=== PATIENT | female | born 1945 | race Caucasian/White ===

== ENCOUNTER → 2017-02-15 | Outpatient (CLI) | payer BC ==
[~2017-02-15] MED LIST: ALBU1AER9 INH; ALLEGRA D PO; ASMIN/60 INH; BIMA0.03 OPB; CALCIUM 200 MG PO; CHOL100027 PO; COEN100C15 PO; CONJ0.3T3 PO; FISHOIL PO; GLUC500C60 PO; LACT12CR18 TOP; NIAC500T8 PO; TEMA15CA4 PO; TRETINOIN 0.025% TOP; ZOLP10TA PO; biotin PO; strontium PO
--- NOTE | 2017-02-15 15:21 | MAMMOGRAPHY REPORT ---
BILATERAL DIGITAL SCREENING MAMMOGRAM WITH CAD: 02/15/2017 CLINICAL HISTORY: Routine screening. Patient has no complaints. TECHNIQUE: Current study was also evaluated with a Computer Aided Detection (CAD) system. Bilateral CC and MLO views were obtained. COMPARISON: Comparison is made to exams dated: 02/15/2016 mammogram, 02/12/2015 mammogram, 02/03/2014 ma mmogram, 01/30/2013 mammogram, 01/23/2012 mammogram, and 01/18/2011 mammogram - [facility] nter. BREAST COMPOSITION: There are scattered areas of fibroglandular density in both breasts. FINDINGS: No suspicious masses, calcifications, or areas of architectural distortion are noted in ei ther breast. There has been no significant interval change compared to prior exams. IMPRESSION: ACR BI-RADS CATEGORY 1: NEGATIVE There is no mammographic evidence of malignancy. A 1 year screening mammogram is recommended. The pa tient will receive written notification of the results. Approximately 10% of breast cancers are not detected with mammography. A negative mammographic report should not delay biopsy if a clinically suggestive mass is present. Estefanía Comer M.D. ah/:02/15/2017 12:07:03 copy to: Eryn Mi M.D. Steam Gigger: Ingrid NOLASCOR M, [facility] letter sent: Normal 1/2 BI-RADS Code: ACR BI-RADS Category 1: Negative
== END | disposition home or self-care (01) ==
LOC: C.MAMM 10:52
PROVIDERS: ATTEND Family Medicine
DX: Z12.31 Encounter for screening mammogram for malignant neoplasm of breast (principal)

== ENCOUNTER → 2017-02-21 | Outpatient (CLI) | payer BC | LOC: C.PAPS 13:38 | PROVIDERS: ATTEND Obstetrics & Gynecology | DX: Z01.419 Encounter for gynecological examination (general) (routine) without abnormal findings (principal) ==

== ENCOUNTER 2017-05-28 16:57 | Emergency (ER) | payer BC ==
[2017-05-28] MEDS ORDERED: ONDANSETRON INJ 2 MG/ML 2 ML VIAL IV STA (17:12)
[2017-05-28] MEDS ORDERED: FENTANYL CITRATE INJ 50 MCG/1 ML 2 ML VIAL ONE (17:16)
[2017-05-28] MEDS ORDERED: ONDANSETRON INJ 2 MG/ML 2 ML VIAL ONE (17:16)
[2017-05-28] MEDS: FENTANYL CITRATE INJ 50 MCG/1 ML 2 ML VIAL IV PRN ×2 (17:20→18:57)
[2017-05-28] MEDS ORDERED: OPTIRAY 320 IV PRN (17:30)
[2017-05-28 17:38] VITALS: O2SAT 95
[2017-05-28 18:03] LABS: ISTAT CREATININE 1.1 mg/dl (0.6-1.3); ISTAT HEMOGLOBIN 14.3 g/dl (12.0-16.0); ISTAT IONIZED CALCIUM 1.18 mmol/l (1.12-1.32)
--- NOTE | 2017-05-28 18:03 | DIAGNOSTIC IMAGING REPORT ---
CHEST ONE VIEW PORTABLE CLINICAL HISTORY: Atypical chest pain COMPARISON STUDY: 08/06/2012 FINDINGS: The heart is normal in size. There is aortic tortuosity. There is no failure. There is no focal pulmonary consolidation. There is a linear opacity at left lung base, likely atelectatic.[ IMPRESSION: No active disease in the chest. Electronically signed by: Christian Bower M.D. 05/28/2017 6:02 PM Dictated Date/Time: 05/28/2017 6:01 PM
[2017-05-28 18:12] LABS: ALT/SGPT 29 U/L (12-78); BLOOD UREA NITROGEN 23 mg/dl (7-18); BUN/CREATININE RATIO 18.7 (10-20); CALCIUM 9.7 mg/dl (8.5-10.1); CARBON DIOXIDE 24 mmol/L (21-32); CHLORIDE 100 mmol/L (98-107); CREATININE 1.23 mg/dl (0.60-1.20); GLUCOSE 104 mg/dl (70-99); POTASSIUM 2.9 mmol/L (3.5-5.1); SODIUM 137 mmol/L (136-145)
[2017-05-28 18:17] LABS: ALKALINE PHOSPHATASE 59 U/L (45-117); AST/SGOT 22 U/L (15-37); CKMB/CK RATIO 0.8 (0-3.0)
--- NOTE | 2017-05-28 18:44 | DIAGNOSTIC IMAGING REPORT ---
CT SCAN OF THE BRAIN WITHOUT IV CONTRAST CLINICAL HISTORY: Change in mental status. COMPARISON STUDY: No priors. TECHNIQUE: Unenhanced axial CT scan of the brain is performed from the vertex to the skull base. CT DOSE: 638.56 mGycm FINDINGS: Brain parenchyma: There are age-related involutional changes noting minimal subcortical and periventricular microangiopathic change. There is no hemorrhage, mass effect, or evidence of acute territorial ischemia by CT criteria. Jacinto-white matter is preserved. No extra-axial fluid collection is seen. Ventricles, sulci, cisterns: Prominent secondary to involutional change. Intracranial vasculature: There is mild atherosclerotic calcification of the cavernous carotid arteries. Calvarium: Unremarkable. Sinuses and mastoids: The visualized paranasal sinuses are clear. The mastoid air cells are well pneumatized. Orbits: The bony orbits are grossly intact. IMPRESSION: There is no hemorrhage, mass effect, or evidence of acute territorial ischemia by CT criteria. Electronically signed by: Manohar Preciado M.D. 05/28/2017 6:40 PM Dictated Date/Time: 05/28/2017 6:38 PM
[2017-05-28 18:46] LABS: BASO % 0.3 %; BASO ABS # 0.03 K/uL (0-0.2); COMPLETE YES; EOS % 2.8 %; HEMATOCRIT 41.8 % (37-47); IG% 0.2 %; LYMPH % 35.9 %; MEAN CELL VOLUME 88.4 fL (80-100); MEAN CORPUSCULAR HEMOGLOBIN 29.6 pg (25-34); MEAN CORPUSCULAR HGB CONC 33.5 g/dl (32-36); MEAN PLATELET VOLUME 10.5 fL (7.4-10.4); MONO % 7.9 %; NEUT % 52.9 %; PLATELET COUNT 239 K/uL (130-400); RED BLOOD COUNT 4.73 M/uL (4.2-5.4); WHITE BLOOD COUNT 10.32 K/uL (4.8-10.8)
[2017-05-28] MEDS ORDERED: FLUT0.15 NAE (18:50)
[2017-05-28] MEDS ORDERED: ZOLP10TA PO (18:50)
[2017-05-28] MEDS ORDERED: ATOR10TA88 PO (18:50)
[2017-05-28] MEDS ORDERED: CETITAB27 PO (18:50)
[2017-05-28] MEDS ORDERED: STROCRY11 PO (18:50)
[2017-05-28] MEDS ORDERED: CYCL10TA6 PO (18:50)
[2017-05-28] MEDS ORDERED: CONJ0.3T3 PO (18:50)
[2017-05-28] MEDS ORDERED: ASMIN/60 INH (18:50)
[2017-05-28] MEDS ORDERED: CALCCAP15 PO ×2 (18:50)
[2017-05-28] MEDS ORDERED: VNTHFA/IN INH (18:50)
[2017-05-28] MEDS ORDERED: TEMA15CA4 PO (18:50)
[2017-05-28] MEDS ORDERED: LABETALOL HCL IV 5 MG/ML 20ML IV STA ×2 (18:54→19:58)
--- NOTE | 2017-05-28 19:03 | DIAGNOSTIC IMAGING REPORT ---
CT ANGIOGRAM OF THE CHEST COMBO CLINICAL HISTORY: Atypical chest pain. COMPARISON STUDY: Chest x-ray dated 05/28/2017. TECHNIQUE: Before and following the IV administration of 93 cc of Optiray 320, CT angiogram of the chest was performed from the thoracic inlet to the upper abdomen utilizing the dissection protocol. Images are reviewed in the axial, sagittal, and coronal planes. 3-D MIPS images are created and assessed. IV contrast was administered without complication. A dose lowering technique was utilized adhering to the principles of ALARA. The examination is degraded by streak artifact from the patient's arms which could not be elevated above the chest. CT DOSE: 492.35 mGycm FINDINGS: Thyroid: Imaged portions of the thyroid gland are normal in size and attenuation. Thoracic aorta: There is atherosclerotic calcification of the thoracic aorta. There is a large intracranial hematoma identified. This extends from the aortic root into the descending thoracic aorta. This measures up to 7 mm in thickness as seen on image #117 of the unenhanced series. There is an is mild dilatation of the ascending thoracic aorta which measures up to 4.5 cm in diameter. The aortic arch is mildly ectatic measuring up to 3.3 cm. The descending thoracic aorta is normal in caliber, measuring up to 2.6 cm in diameter. The arch demonstrates standard 3-vessel anatomy. No dissection flat is seen. The arch vessels are widely patent. Intracranial hematoma extends into the right common artery and there is mild stranding seen around the vessel. Heart: The heart is enlarged and without pericardial effusion. Coronary arteries are densely calcified. The pulmonary trunk is normal in caliber. The pulmonary vessels are not well opacified. Lungs and pleural spaces: There is no airspace consolidation or pleural effusion. Dependent atelectasis is noted. The trachea and central airways appear clear. Mediastinum: There is no mediastinal lymphadenopathy. Loretta: Clear. Axillae: There is no axillary lymphadenopathy. Upper abdomen: There is a small hiatal hernia. Partially visualized upper abdominal viscera is otherwise normal as imaged. Skeletal structures: The skeletal structures are osteopenic. Mild degenerative change and scoliosis are seen in the thoracic spine. No lytic or blastic bony lesions are seen. IMPRESSION: 1. There is a large intramural hematoma identified as detailed above which involves the majority of the thoracic aorta. 2. There is aneurysmal dilatation of the ascending thoracic aorta which measures up to 4.5 cm in diameter. 3. Intramural hematoma extends into the right innominate artery. Mild stranding seen around the innominate artery. This is nonspecific and may represent trace hemorrhage. 4. No dissection flap is identified. 5. No airspace consolidation or pleural effusion is seen. 6. Cardiomegaly. No pericardial effusion is identified. 7. Additional findings as above. Findings were discussed with Dr. Tamez in the emergency department at the time of interpretation. Electronically signed by: Manohar Preciado M.D. 05/28/2017 7:01 PM Dictated Date/Time: 05/28/2017 6:49 PM
[2017-05-28] MEDS ORDERED: NiCARDipine IV 25 MG in SODIUM CHLORIDE 0.9% 250ML 240 ML IV STA (19:16)
[2017-05-28] MEDS ORDERED: POTASSIUM CHLORIDE 10 MEQ / 100ML WTR IV STA (20:15)
[2017-05-28] MEDS ORDERED: POTASSIUM CHLORIDE 10 MEQ / 100ML WTR IV ONE (20:15)
[2017-05-28 20:27] VITALS: BP 122/79; PULSE 71; TEMP 36.6; O2SAT 97
--- NOTE | 2017-05-28 22:45 | EMERGENCY ROOM VISIT NOTE ---
History Report prepared by Michael: Braulio Gonzáles Under the Supervision of: Dr. Hernan Tamez M.D. First contact with patient: 17:11 Chief Complaint: CHEST PAIN Stated Complaint: CHEST PAIN History of Present Illness The patient is a 71 year old female who presents to the Emergency Room with complaints of chest pain that began 1 hour ago. This history is limited secondary to the patient's altered mental status. Per the patient's , this has never happened to the patient before. Earlier today, they walked over 10,000 steps and the patient was at her baseline. This afternoon, she walked the dog and she began to have chest pain. She called her immediately telling him what was happening and that she was also having palpitations, dizziness, and shortness of breath. The called the ambulance. She then became mental altered shortly after and began rubbing her sternum. She does not have any personal cardiac history of a family history of cardiac disease. The notes that she got back from [place] last night. While she was in [facility] , she did not have an issues either. She was given Nitroglycerin and Aspirin en route via EMS. She did not have any recent falls. Source of History: spouse/significant other History Limited By: AMS Onset: 1 hour ago Position: chest Symptom Intensity: moderate Quality: sharp Timing: constant Associated Symptoms: + SOB Note: She was experiencing dizziness and palpitations prior to becoming mental altered. Review of Systems ROS is limited secondary to the patient's altered mental status. Family History Omitted secondary to the patient's age. Social History Drug Use: none Marital Status: Housing Status: lives with family Occupation Status: employed Current/Historical Medications Scheduled Albuterol Hfa (Ventolin Hfa), 1 PUFF INH BID Atorvastatin (Lipitor), 10 MG PO DAILY Calcium Carbonate-Cholecalcife (Calcium Plus Vitamin D3), 1 CAP PO QAM Calcium Carbonate-Cholecalcife (Calcium Plus Vitamin D3), 2 CAP PO HS Cetirizine/Pseudoephedrine (Zyrtec-D Er 5MG/120MG), 1 TAB PO BID Estrog Conj/Medryoxyprog Acet (Prempro 0.3MG/1.5MG), 1 TAB PO DAILY Fluticasone Propionate (Nasal) (Flonase Allergy Relief), 2 SPRAYS TYRONE DAILY Mometasone Furoate (Asmanex Twisthaler 60 Met), 1 PUFF INH BID Strontium Chloride (Bulk) (Strontium Chloride), 600 MG PO MIDDAY Zolpidem Tartrate (Ambien), 10 MG PO HS Scheduled PRN Cyclobenzaprine Hcl (Flexeril), 1 TAB PO HS PRN for MUSCLE PAINS Temazepam (Restoril), 15 MG PO HS PRN for Sleep Allergies Coded Allergies: Naproxen (Verified Allergy, Unknown, unk, 08/06/12) Rofecoxib (Verified Allergy, Unknown, unk, 02/14/16) Sulfa Antibiotics (Verified Allergy, Unknown, unknown, 08/06/12) Physical Exam Vital Signs Date Time Temp Pulse Resp B/P (MAP) Pulse Ox O2 Delivery O2 Flow Rate FiO2 05/28/17 20:27 36.6 71 20 122/79 97 05/28/17 20:27 36.6 71 20 122/79 97 05/28/17 19:18 68 20 149/77 95 Room Air 2.0 95 05/28/17 18:43 62 20 146/90 95 Room Air 05/28/17 18:01 57 20 146/97 97 Room Air 05/28/17 17:38 95 Room Air 2.0 05/28/17 17:38 95 Nasal Cannula 2.0 05/28/17 17:28 95 Room Air 05/28/17 17:28 36.5 73 26 162/86 Room Air 95 05/28/17 17:27 65 20 106/78 97 Nasal Cannula Physical Exam GENERAL: Awake, alert, very uncomfortable, in severe distress HENT: Normocephalic, atraumatic. Oropharynx unremarkable. EYES: Normal conjunctiva. Sclera non-icteric. NECK: Supple. No nuchal rigidity. FROM. No JVD. RESPIRATORY: Clear to auscultation. CARDIAC: Regular rate, normal rhythm. Extremities warm and well perfused. Pulses equal. ABDOMEN: Soft, non-distended. No tenderness to palpation. No rebound or guarding. No masses. RECTAL: Deferred. MUSCULOSKELETAL: Chest examination reveals no tenderness. The back is symmetrical on inspection without obvious abnormality. There is no CVA tenderness to palpation. No joint edema. LOWER EXTREMITIES: Calves are equal size bilaterally and non-tender. No edema. No discoloration. NEURO: Altered sensorium. No focal sensory or motor deficits noted. Expressive aphasia present. SKIN: No rash or jaundice noted. Medical Decision & Procedures ER Provider Diagnostic Interpretation: Radiology results as stated below per my review and radiologist interpretation: CHEST ONE VIEW PORTABLE CLINICAL HISTORY: Atypical chest pain COMPARISON STUDY: 08/06/2012 FINDINGS: The heart is normal in size. There is aortic tortuosity. There is no failure. There is no focal pulmonary consolidation. There is a linear opacity at left lung base, likely atelectatic.[ IMPRESSION: No active disease in the chest. Electronically signed by: Christian Bower M.D. 05/28/2017 6:02 PM Dictated Date/Time: 05/28/2017 6:[address] SCAN OF THE BRAIN WITHOUT IV CONTRAST CLINICAL HISTORY: Change in mental status. COMPARISON STUDY: No priors. TECHNIQUE: Unenhanced axial CT scan of the brain is performed from the vertex to the skull base. CT DOSE: 638.56 mGycm FINDINGS: Brain parenchyma: There are age-related involutional changes noting minimal subcortical and periventricular microangiopathic change. There is no hemorrhage, mass effect, or evidence of acute territorial ischemia by CT criteria. Jacinto-white matter is preserved. No extra-axial fluid collection is seen. Ventricles, sulci, cisterns: Prominent secondary to involutional change. Intracranial vasculature: There is mild atherosclerotic calcification of the cavernous carotid arteries. Calvarium: Unremarkable. Sinuses and mastoids: The visualized paranasal sinuses are clear. The mastoid air cells are well pneumatized. Orbits: The bony orbits are grossly intact. IMPRESSION: There is no hemorrhage, mass effect, or evidence of acute territorial ischemia by CT criteria. Electronically signed by: Manohar Preciado M.D. 05/28/2017 6:40 PM Dictated Date/Time: 05/28/2017 6:[address] ANGIOGRAM OF THE CHEST COMBO CLINICAL HISTORY: Atypical chest pain. COMPARISON STUDY: Chest x-ray dated 05/28/2017. TECHNIQUE: Before and following the IV administration of 93 cc of Optiray 320, CT angiogram of the chest was performed from the thoracic inlet to the upper abdomen utilizing the dissection protocol. Images are reviewed in the axial, sagittal, and coronal planes. 3-D MIPS images are created and assessed. IV contrast was administered without complication. A dose lowering technique was utilized adhering to the principles of ALARA. The examination is degraded by streak artifact from the patient's arms which could not be elevated above the chest. CT DOSE: 492.35 mGycm FINDINGS: Thyroid: Imaged portions of the thyroid gland are normal in size and attenuation. Thoracic aorta: There is atherosclerotic calcification of the thoracic aorta. There is a large intracranial hematoma identified. This extends from the aortic root into the descending thoracic aorta. This measures up to 7 mm in thickness as seen on image #117 of the unenhanced series. There is an is mild dilatation of the ascending thoracic aorta which measures up to 4.5 cm in diameter. The aortic arch is mildly ectatic measuring up to 3.3 cm. The descending thoracic aorta is normal in caliber, measuring up to 2.6 cm in diameter. The arch demonstrates standard 3-vessel anatomy. No dissection flat is seen. The arch vessels are widely patent. Intracranial hematoma extends into the right common artery and there is mild stranding seen around the vessel. Heart: The heart is enlarged and without pericardial effusion. Coronary arteries are densely calcified. The pulmonary trunk is normal in caliber. The pulmonary vessels are not well opacified. Lungs and pleural spaces: There is no airspace consolidation or pleural effusion. Dependent atelectasis is noted. The trachea and central airways appear clear. Mediastinum: There is no mediastinal lymphadenopathy. Loretta: Clear. Axillae: There is no axillary lymphadenopathy. Upper abdomen: There is a small hiatal hernia. Partially visualized upper abdominal viscera is otherwise normal as imaged. Skeletal structures: The skeletal structures are osteopenic. Mild degenerative change and scoliosis are seen in the thoracic spine. No lytic or blastic bony lesions are seen. IMPRESSION: 1. There is a large intramural hematoma identified as detailed above which involves the majority of the thoracic aorta. 2. There is aneurysmal dilatation of the ascending thoracic aorta which measures up to 4.5 cm in diameter. 3. Intramural hematoma extends into the right innominate artery. Mild stranding seen around the innominate artery. This is nonspecific and may represent trace hemorrhage. 4. No dissection flap is identified. 5. No airspace consolidation or pleural effusion is seen. 6. Cardiomegaly. No pericardial effusion is identified. 7. Additional findings as above. Findings were discussed with Dr. Tamez in the emergency department at the time of interpretation. Electronically signed by: Manohar Preciado M.D. 05/28/2017 7:01 PM Dictated Date/Time: 05/28/2017 6:49 PM Laboratory Results 05/28/17 17:25 Red Blood Count 4.73, Mean Corpuscular Volume 88.4, Mean Corpuscular Hemoglobin 29.6, Mean Corpuscular Hemoglobin Concent 33.5, Mean Platelet Volume 10.5, Neutrophils (%) (Auto) 52.9, Lymphocytes (%) (Auto) 35.9, Monocytes (%) (Auto) 7.9, Eosinophils (%) (Auto) 2.8, Basophils (%) (Auto) 0.3, Neutrophils # (Auto) 5.46, Lymphocytes # (Auto) 3.70, Monocytes # (Auto) 0.82, Eosinophils # (Auto) 0.29, Basophils # (Auto) 0.03 05/28/17 17:25 Test 05/28/17 17:25 05/28/17 17:42 White Blood Count 10.32 K/uL (4.8-10.8) Red Blood Count 4.73 M/uL (4.2-5.4) Hemoglobin 14.0 g/dL (12.0-16.0) Hematocrit 41.8 % (37-47) Mean Corpuscular Volume 88.4 fL (80-100) Mean Corpuscular Hemoglobin 29.6 pg (25-34) Mean Corpuscular Hemoglobin Concent 33.5 g/dl (32-36) Platelet Count 239 K/uL (130-400) Mean Platelet Volume 10.5 fL (7.4-10.4) Neutrophils (%) (Auto) 52.9 % Lymphocytes (%) (Auto) 35.9 % Monocytes (%) (Auto) 7.9 % Eosinophils (%) (Auto) 2.8 % Basophils (%) (Auto) 0.3 % Neutrophils # (Auto) 5.46 K/uL (1.4-6.5) Lymphocytes # (Auto) 3.70 K/uL (1.2-3.4) Monocytes # (Auto) 0.82 K/uL (0.11-0.59) Eosinophils # (Auto) 0.29 K/uL (0-0.5) Basophils # (Auto) 0.03 K/uL (0-0.2) RDW Standard Deviation 42.1 fL (36.4-46.3) RDW Coefficient of Variation 13.0 % (11.5-14.5) Immature Granulocyte % (Auto) 0.2 % Immature Granulocyte # (Auto) 0.02 K/uL (0.00-0.02) Estimated GFR () 51.1 Estimated GFR (Non- 44.1 BUN/Creatinine Ratio 18.7 (10-20) Calcium Level 9.7 mg/dl (8.5-10.1) Total Bilirubin 0.4 mg/dl (0.2-1) Direct Bilirubin < 0.1 mg/dl (0-0.2) Aspartate Amino Transf (AST/SGOT) 22 U/L (15-37) Alanine Aminotransferase (ALT/SGPT) 29 U/L (12-78) Alkaline Phosphatase 59 U/L (45-117) Total Creatine Kinase 226 U/L (26-192) Creatine Kinase MB 1.7 ng/ml (0.5-3.6) Creatine Kinase MB Ratio 0.8 (0-3.0) Troponin I < 0.015 ng/ml (0-0.045) Total Protein 7.6 gm/dl (6.4-8.2) Albumin 3.8 gm/dl (3.4-5.0) Lipase 225 U/L (73-393) Bedside Hemoglobin 14.3 g/dl (12.0-16.0) Bedside Hematocrit 42 % (37-47) Bedside Sodium 138 mEq/L (135-144) Bedside Potassium 3.0 mEq/L (3.3-5.0) Bedside Chloride 100 mEq/L (101-112) Bedside Total CO2 23 mEq/l (24-31) Anion Gap 18.0 mmol/L (16-25) Bedside Blood Urea Nitrogen 24 mg/dl (7-18) Bedside Creatinine 1.1 mg/dl (0.6-1.3) Bedside Glucose (other) 105 mg/dl (70-99) Bedside Ionized Calcium (Floyd) 1.18 mmol/l (1.12-1.32) Laboratory results reviewed by me Medications Administered Medications (Trade) Dose Ordered Sig/Jesús Route Start Time Stop Time Status Last Admin Dose Admin Ondansetron HCl (Zofran Inj) 4 mg NOW STAT IV 05/28/17 17:12 05/28/17 17:15 DC 05/28/17 17:19 4 MG Fentanyl Citrate (Fentanyl Inj) 50 mcg Q15M PRN IV 05/28/17 17:15 05/28/17 20:43 DC 05/28/17 18:57 50 MCG Labetalol HCl (Normodyne IV) 10 mg NOW STAT IV 05/28/17 18:54 05/28/17 18:56 DC 05/28/17 19:02 10 MG Nicardipine HCl 25 mg/Sodium Chloride 250 ml @ 0 mls/hr Q0M STAT IV 05/28/17 19:16 05/28/17 19:17 DC 05/28/17 19:33 50 MLS/HR Labetalol HCl (Normodyne IV) 10 mg NOW STAT IV 05/28/17 19:58 05/28/17 19:59 DC 05/28/17 20:05 10 MG ECG Indication: chest pain Rate (beats per minute): 68 Rhythm: sinus rhythm Findings: nonspecific-ST abn, PVC, no acute ischemic change, left axis deviation ED Course 171: The patient was evaluated in room A3. A complete history and physical exam was performed. 171: Ordered Zofran Inj 4 mg IV 1715: Ordered Fentanyl Inj 50 mcg IV 175: At this time, the patient is more lucid and making more verbal sense. She is going to radiology. 1853: Ordered Labetalol HCl 10 mg IV 1902: I discussed the patient's case with Dr. Fernandes of Cardiology at this time. He recommended transfer for further evaluation. 1915: Ordered Nicardipine HCl 25 mg/Sodium Chloride 250 ml @ 0 mls/hr Protocol IV 1922: I spoke with Dr. Hinson of Thoracic surgery. She accepted the patient for further evaluation in the ICU of [facility]. She will be analyzing the patient's radiology reports to decide if she needs to go to the OR. 1938: I discussed the patient's case with Dr. Mckeon of ICU at this time. They are aware of the patient's case. 1944: The patient will be transferred to [place] for further management by ambulance. 1957: Ordered Labetalol HCl 10 mg IV 1999: The patient is going well at this time. Medical Decision Triage Nursing notes reviewed. The patient's presentation and history were concerning for chest pain and altered mental status. Etiologies such as cardiac ischemia, aortic dissection, pulmonary embolism, pneumonia, pneumothorax, musculoskeletal, infections, gastrointestinal, as well as others were entertained. The patient was emergently evaluated. I was called to the bedside as she was in quite a bit of distress. The patient was altered. She was not answering questions. I obtained most of the history initially from her . The patient had no clinical change with nitroglycerin. She had an i-STAT and clinical testing drawn. Her ECG did not show any evidence of ischemia. Monitoring showed occasional PVCs. The patient was given a dose of IV fentanyl and Zofran. This helped relax her. She seemed to be somewhat more lucid after this. The patient had an unremarkable troponin. I-STAT shows a mild hypokalemia. Cranium is unremarkable. The patient had a very elevated d- dimer. The patient received a chest x-ray and this was unremarkable. Mediastinum appeared unremarkable. She was sent for CT imaging of the head and a dissection study. The CT of her head was unremarkable. Upon returning from radiology the patient's mental status was improved. She was having more pain and then was given a dose of IV fentanyl. I was contacted by radiology and we reviewed the imaging. The patient has an intramural hematoma of the aortic root , arch, and descending aorta. This is all thoracic in nature. There is some abnormality noted of the innominate artery as well. The patient was given a dose of IV labetalol as she was mildly hypertensive. This helped somewhat. Her heart rate was better controlled. Her blood pressure was still mildly elevated and nicardipine was initiated. I informed the patient and her that she would require additional care for this problem. I did consult with Dr. Fernandes of [facility] cardiology and he recommended transfer. The patient and would like to go to [facility]. Unfortunately due to weather [employer] was unavailable by air. I did ask for the flight crew by ground for critical care transport. I consulted with [facility] thoracic surgery , Dr. Hinson and Dr. Mckeon from critical care. The patient was accepted by thoracic surgery to the [facility] ICU. They agreed with the treatment so far and recommended a target blood pressure of around 120 systolic. The patient did require a second dose of IV labetalol. Her nicardipine drip was continued. The flight crew arrived and they were updated. The patient was feeling significantly better. Her mental status was normal at this point. Blood pressure was 122/79. Paperwork and imaging were compiled. The patient was transferred in critical condition for further management at [facility]. Medication Reconcilliation Current Medication List: was personally reviewed by me Blood Pressure Screening Patient's blood pressure: Elevated blood pressure Blood pressure disposition: Elevated BP felt to be situational Consults Time Called: 1899 Consulting Physician: Dr. Fernandes - Cardiology Returned Call: 1902 They recommended that the patient be transferred to a tertiary care facility. Additional Consults: Time Called: 1919 Consulted Physician: Dr. Hinson - Thoracic Surgery Returned Call: 1922 Additional Comments: She accepted the patient for further treatment at her facility. She recommended that the patient go to the ICU pending radiology review. Time Called: 1934 Consulted Physician: Dr. Mckeon - ICU/Critical Care Returned Call: 1938 Additional Comments: We discussed the patient's case. They are aware of the patient's condition. Impression Primary Impression: Intramural aortic hematoma Critical Care I have personally spent greater than 120 minutes of critical care time in the direct management of this patient. This includes bedside care, interpretation of diagnostic studies, and testing, discussion with consultants, patient, and family members, and other required patient management activities. This 120 minutes is in excess of all separately billable procedures. Scribe Attestation The scribe's documentation has been prepared under my direction and personally reviewed by me in its entirety. I confirm that the note above accurately reflects all work, treatment, procedures, and medical decision making performed by me. Departure Information Dispostion Transfer Acute Care Facility Referrals No Doctor, Assigned (PCP) Patient Instructions [facility]
[2017-05-29 09:29] LABS: POINT OF CARE TROPONIN I < 0.030 ng/ml (0-0.045)
== END 2017-05-28 20:28 | disposition short-term general hospital (02) ==
LOC: EDBD 16:57 → C.EDA 16:58
DX: I71.00 Dissection of unspecified site of aorta (principal); Z79.899 Other long term (current) drug therapy; Z88.2 Allergy status to sulfonamides; Z88.8 Allergy status to other drugs, medicaments and biological substances

== ENCOUNTER 2020-11-09 06:50 | Observation (INO) ==
--- NOTE | 2020-10-11 14:37 | PAT Medication Instructions ---
Medication Instructions Date of Service October 11, 2020 Home Medications Medication Instructions Recorded mometasone 1 puffs INH BID #3 inhaler 02/10/20 testosterone proprionate powder See Rx Instructions TRANSDERMAL 06/16/20 DAILY #30 gm antiarthritic combination no.2 900 mg tablet 1 mg PO BID ascorbate calcium (vitamin C) 500 mg tablet 500 mg PO DAILY PRN atorvastatin 80 mg tablet 80 mg PO QPM cyclobenzaprine 10 mg tablet 5 mg PO DAILY PRN hydrocortisone valerate 0.2 % topical cream 1 applic TOPICAL DAILY metoprolol tartrate 100 mg tablet 100 mg PO QPM zolpidem 5 mg tablet 0.3 mg PO QPM PRN mometasone 1 puffs INH BID testosterone proprionate powder See Rx Instructions TRANSDERMAL DAILY meloxicam 7.5 mg tablet 7.5 mg PO QAM Calcium Otc 400 mg PO BID De-(Dry Eye)Otc 5 ml PO QAM Strontium Otc 340 mg PO QPM acetylcarnitine 250 mg PO QPM albuterol sulfate 1 puff INHALATION BID aspirin [Aspir-81] 81 mg PO HS cholecalciferol (vitamin D3) 1,000 unit PO QPM chondroitin sulfate A sodium [Chondroitin Sulfate] 400 mg PO QPM conj estrog-medroxyprogest esha [Prempro] 1 tab PO QAM magnesium citrate 400 mg PO QAM multivitamin 1 tab PO QAM proline (bulk) [L-Proline] 1 ea MISCELLANEOUS QPM temazepam 15 mg PO HS PRN vitamin K2 100 mcg PO QPM Continue as directed hydrocortisone valerate 0.2 % topical cream 1 applic TOPICAL DAILY testosterone proprionate powder See Rx Instructions TRANSDERMAL DAILY STOP taking 2 weeks before surgery If surgery is within 2 weeks, stop taking as soon as possible. antiarthritic combination no.2 900 mg tablet 1 mg PO BID Calcium Otc 400 mg PO BID De-(Dry Eye)Otc 5 ml PO QAM Strontium Otc 340 mg PO QPM acetylcarnitine 250 mg PO QPM chondroitin sulfate A sodium [Chondroitin Sulfate] 400 mg PO QPM proline (bulk) [L-Proline] 1 ea MISCELLANEOUS QPM vitamin K2 100 mcg PO QPM DO NOT take the morning of surgery ascorbate calcium (vitamin C) 500 mg tablet 500 mg PO DAILY PRN cyclobenzaprine 10 mg tablet 5 mg PO DAILY PRN Calcium Otc 400 mg PO BID magnesium citrate 400 mg PO QAM multivitamin 1 tab PO QAM Take morning of surgery OTHERWISE NOTHING TO EAT OR DRINK AFTER MIDNIGHT: mometasone 1 puffs INH BID albuterol sulfate 1 puff INHALATION BID -- bring with you to the hospital AM of surgery Take evening before surgery ascorbate calcium (vitamin C) 500 mg tablet 500 mg PO DAILY PRN (if needed) atorvastatin 80 mg tablet 80 mg PO QPM cyclobenzaprine 10 mg tablet 5 mg PO DAILY PRN (if needed) metoprolol tartrate 100 mg tablet 100 mg PO QPM zolpidem 5 mg tablet 0.3 mg PO QPM PRN (if needed) mometasone 1 puffs INH BID Calcium Otc 400 mg PO BID albuterol sulfate 1 puff INHALATION BID aspirin [Aspir-81] 81 mg PO HS cholecalciferol (vitamin D3) 1,000 unit PO QPM temazepam 15 mg PO HS PRN (if needed) Other Notes If you have any questions please call us at [phone] or [phone] or [phone] or [phone]
--- NOTE | 2020-10-12 10:50 | Anesthesiology Consultation ---
Date of Service October 12, 2020 Assessment & Plan (1) Encounter for pre-operative examination: Cardiology Clearance 09/30/20: From a cardiac standpoint she is doing very well and I would like to repeat her echocardiogram in 1 year and see her in follow-up at that point. Otherwise, she is on a very good medical regimen and no changes will be made today. In terms of her preop risk assessment she and her were counseled that I would place her as a moderate risk for any adverse perioperative cardiovascular event with the risk being approximately less than 5%. She was further counseled that no further cardiac testing or intervention would further lower that risk. They both state that they understand, they are accepting that risk and wished to proceed with surgery. I see no need to delay from a cardiac standpoint. She was counseled to continue her metoprolol under operative throughout the perioperative. To further reduce her risk." COVID Status: As of 10/12 assessment, patient denies travel to endemic area, known exposure/sick contacts, or symptoms of COVID19. Patient instructed that they and their household members must follow strict social distancing guidelines, wear a mask in public and avoid travel/events/gatherings for 14 days prior to surgery. Preoperative COVID19 testing to be completed prior to surgery per surgeon's arra ngements (11/03). Patient made aware to self-isolate as much as possible between COVID testing and surgery. Chart Review Chart Review: Acceptable Risk for Surgery and Patient seen in Pre Admission Testing Teaching & Discussion Instructed NPO after midnight before surgery, except medications with 15 cc of water. Medication instructions provided according to the PAT guidelines. History Surgery Operation Date: 11/09/20 12:30 Proposed Procedures p Right Total Knee Arthroplasty - Familia Jules MD Height/Weight Height: 5 ft 9.75 in Weight: 66.9 kg Allergies Allergy/AdvReac Type Severity Reaction Status Date / Time naproxen Allergy Unknown ITCHY Verified 09/24/20 09:42 rofecoxib Allergy Unknown ITCHY Verified 09/24/20 09:42 Sulfa (Sulfonamide Allergy Unknown unknown Verified 09/24/20 09:42 Antibiotics) Naprosyn TABS Allergy Unknown ITCHY Uncoded 09/24/20 09:42 Sulfa Drugs Allergy Unknown Unknown Uncoded 09/24/20 09:42 Vioxx TABS Allergy Unknown ITCHY Uncoded 09/24/20 09:42 Medications Home Medications Medication Instructions Recorded Confirmed Last Taken antiarthritic combination no.2 900 1 mg PO BID tab 02/26/19 09/24/20 Unknown mg tablet ascorbate calcium (vitamin C) 500 500 mg PO DAILY PRN 02/26/19 09/24/20 Unknown mg tablet atorvastatin 80 mg tablet 80 mg PO QPM tab 02/26/19 09/24/20 Unknown cyclobenzaprine 10 mg tablet 5 mg PO DAILY PRN tab 02/26/19 09/24/20 Unknown hydrocortisone valerate 0.2 % 1 applic TOPICAL DAILY #3 gm 02/26/19 09/24/20 Unknown topical cream metoprolol tartrate 100 mg tablet 100 mg PO QPM tab 05/23/19 09/24/20 Unknown zolpidem 5 mg tablet 0.3 mg PO QPM PRN tab 05/23/19 09/24/20 Unknown mometasone 1 puffs INH BID #3 inhaler 02/10/20 09/24/20 Unknown testosterone proprionate powder See Rx Instructions TRANSDERMAL 06/16/20 09/24/20 Unknown DAILY #30 gm meloxicam 7.5 mg tablet 7.5 mg PO QAM 08/20/20 09/24/20 Unknown Calcium Otc 400 mg PO BID 09/24/20 09/24/20 Unknown De-(Dry Eye)Otc 5 ml PO QAM 09/24/20 09/24/20 Unknown Strontium Otc 340 mg PO QPM 09/24/20 09/24/20 Unknown acetylcarnitine 250 mg PO QPM 09/24/20 09/24/20 Unknown albuterol sulfate 1 puff INHALATION BID 09/24/20 09/24/20 Unknown aspirin [Aspir-81] 81 mg PO HS 09/24/20 09/24/20 Unknown cholecalciferol (vitamin D3) 1,000 unit PO QPM 09/24/20 09/24/20 Unknown [Vitamin D3] chondroitin sulfate A sodium 400 mg PO QPM 09/24/20 09/24/20 Unknown [Chondroitin Sulfate] conj estrog-medroxyprogest esha 1 tab PO QAM 09/24/20 09/24/20 Unknown [Prempro] magnesium citrate 400 mg PO QAM 09/24/20 09/24/20 Unknown multivitamin 1 tab PO QAM 09/24/20 09/24/20 Unknown proline (bulk) [L-Proline] 1 ea MISCELLANEOUS QPM 09/24/20 09/24/20 Unknown temazepam 15 mg PO HS PRN 09/24/20 09/24/20 Unknown vitamin K2 100 mcg PO QPM 09/24/20 09/24/20 Unknown Past Medical History Medical History (Updated 10/12/20 @ 16:20 by Ang Dawson) Asthma Bilateral primary osteoarthritis of knee Cancer BASAL CELL FACE Celiac artery stenosis H/O allergic urticaria Hyperlipidemia Hypertension Osteoarthritis Thoracic aortic aneurysm without rupture Spontaneous dissection of 4.5cm aneurysm in 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 Monitored by Dr Zurita Naz. Exercise / Class Metabolic Activity II 4-5 Yardwork/Stairs/Walk up hill (Walks about 3 miles per day without CP or SOB) Past Family History Family History Father Diabetes Other Asthma Coronary heart disease Denies family history of Ovarian cancer Breast cancer Colorectal cancer Past Surgical History Surgical History History of appendectomy History of colonoscopy MULTIPLE S/P [place] [facility] [place]illectomy Past Anesthesia History No Hx of Anesthesia Complications and No Family Hx of Anesthesia Complications History of PONV No Hx of PONV and No Hx of Motion Sickness Social History Smoking Status: Former smoker Do You Dip or Chew Tobacco: No Smoking End Date: QUIT 1974 Hx Alcohol Use: Yes Alcohol type: beer, wine and hard liquor alcohol intake frequency: 0-2 drinks per day (1/day) Hx Substance Use: No Review of Systems Pt denies any recent chest pain, shortness of breath, palpitations, cough, fever, URI, or uncontrolled acid reflux. Physical Exam Vital Signs BP: 124/82 P: 67bpm SPO2: 95% RA T: 97.9 F R: 16 ENMT Mouth: + dental restorations (few crowns); no chipped teeth and no loose teeth Thyromental Distance: > or= 3.5 Finger Breadths Mallampati Class: I Neck normal visual inspection; neck extension not limited Respiratory normal respiratory effort, lungs clear to auscultation Cardiovascular RRR, no murmur, no edema Vessels: no carotid bruit Testing Laboratory Results 10/12/20 11:14 10/12/20 11:14 PT 10.3 Seconds (9.0-12.0) 10/12/20 11:14 INR 1.0 (0.9-1.1) 10/12/20 11:14 APTT 25.4 Seconds (21.0-31.0) 10/12/20 11:14 Blood Type O Positive 10/12/20 11:14 Antibody Screen NEGATIVE 10/12/20 11:14 Electrocardiogram Date: 09/30/20 Findings: + NSR @ (82bpm) Chest X-Ray Date: 10/12/20 Findings: + NAD Echocardiogram Date: 04/28/19 EF: 63% Compared to last available study changes are noted as follows: Previously documented aortic root aneurysm is not visualized. Normal LV chamber size with mild concentric LVH. Normal LV systolic function without regional wall motion abnormality. Grade 1 diastolic dysfunction. Mild aortic valve sclerosis without stenosis. The aortic root and proximal ascending aorta are normal size. Patient is status post repair of the ascending aorta with a 28 mm Gelweave graft. Cardiac Catheterization Date: 05/30/17 The coronary arteries have diffuse minor irregularities.
[2020-10-12 11:37] LABS: Basophils # (auto) 0.03 K/uL (0-0.2); Basophils % (auto) 0.4 %; Eosinophils # (auto) 0.29 K/uL (0-0.5); Eosinophils % (auto) 3.4 %; Hematocrit (blood only) 42.8 % (37-47); Hemoglobin 14.5 g/dL (12.0-16.0); Immature Granulocytes # (auto) 0.01 K/uL (0.00-0.02); Immature Granulocytes % (auto) 0.1 %; Lymphocytes # (auto) 1.12 K/uL (1.2-3.4); Lymphocytes % (auto) 13.1 %; Mean Corpuscular Hemoglobin 30.5 pg (25-34); Mean Corpuscular Hgb Conc 33.9 g/dL (32-36); Mean Corpuscular Volume 90.1 fL (80-100); Mean Platelet Volume 10.3 fL (7.4-10.4); Monocytes # (auto) 0.93 K/uL (0.11-0.59); Monocytes % (auto) 10.9 %; Neutrophils # (auto) 6.16 K/uL (1.4-6.5); Neutrophils % (auto) 72.1 %; Platelet Count 249 K/uL (130-400); RDW Coefficient of Variation 13.2 % (11.5-14.5); RDW Standard Deviation 43.6 fL (36.4-46.3); Red Blood Count 4.75 M/uL (4.2-5.4); White Blood Count 8.54 K/uL (4.8-10.8)
[2020-10-12 11:51] LABS: Partial Thromboplastin Time 25.4 Seconds (21.0-31.0); Prothrombin Time 10.3 Seconds (9.0-12.0)
--- NOTE | 2020-10-12 11:58 | XRay Report ---
XR chest Pre-admission PA/Lat HISTORY: Preop. COMPARISON: Chest 05/28/2017. FINDINGS: There are poststernotomy changes. There is a tortuous thoracic aorta. The heart is normal i n size. No pleural effusions. No pneumothorax. The lungs are clear. IMPRESSION: No acute process. ACT 112: Negative or not required by law. Electronically signed by: Nikhil Goodrich M.D. 10/12/2020 11:56 AM
[2020-10-12 14:11] LABS: Calcium 9.3 mg/dl (8.5-10.1); Creatinine Clr Calc Pharmacy 46.7 ml/min; Est GFR (African American) 56.9; Est GFR (Non-African American) 49.1; Potassium 4.5 mmol/L (3.5-5.1)
--- NOTE | 2020-11-05 14:27 | History and Physical Report ---
DATE OF ADMISSION: 11/09/2020 CHIEF COMPLAINT: Bilateral knee pain and discomfort, right side greater than left. HISTORY OF PRESENT ILLNESS: The patient is a 75-year-old female who presents for surgical treatment of her knees. She has got a long history of bilateral knee pain and discomfort that has gradually gotten worse over the past 7 years. She has been followed by Dr. Ma at [facility]. She has been through extensive conservative care including multiple injections and oral medicines. She does take some NSAIDs, which help a little bit. It is mostly consist of Mobic. She has been through physical therapy, which helped minimally. She has had injections, which were effective initially, but became less successful over time. She had both steroid shots and viscosupplementation. She has got global pain. She has got pain all the time. The more she walks, the more it hurts. She is a fairly avid walker and has been less able to do that. She has pain going up and down steps. She would like to have her knees fixed. PAST MEDICAL HISTORY: Significant for, 1. Unspecified heart disease. 2. Elevated cholesterol. 3. Hypertension. 4. Basal cell skin cancer. 5. Dissecting aortic aneurysm treated at [facility] 3-4 years ago. ALLERGIES: SULFA, NAPROXEN, BIOTIN. CURRENT MEDICINES: Include, 1. Ambien 10 mg at nighttime. 2. Atorvastatin 40 mg a day. 3. Metoprolol XL 100 mg once a day. 4. Steroid topical cream. 5. Restoril 15 mg at bedtime. 6. Hydrocortisone topical cream. 7. Magnesium citrate. 8. Vitamin K. 9. Testosterone cream. 10. Multivitamin. 11. Baby aspirin. 12. Albuterol inhaler p.r.n. 13. Asmanex twice a day. 14. Cyclobenzaprine 10 mg a day. 15. Glucosamine. 16. Calcium chloride crystals. 17. Vitamin D3. 18. Prempro. 19. Meloxicam 7.5 mg a day. 20. Calcium. SOCIAL HISTORY: A 75-year-old female. She is . Quite active. One drink per day. Does not smoke. FAMILY HISTORY: Significant for heart disease and diabetes. REVIEW OF SYSTEMS: Significant for this dissecting aneurysm treated at [facility] 3-4 years ago. Denies any diabetes. No chest pain or shortness of breath. No history of DVT or PE. No known bleeding problems. PHYSICAL EXAMINATION: GENERAL: Shows a pleasant elderly female, looks to be in pretty good health. HEENT: Benign. NECK: Supple, no lymphadenopathy. LUNGS: Clear to auscultation. HEART: Regular rate and rhythm. ABDOMEN: Soft, nontender, nondistended. EXTREMITIES: Grossly neurovascularly intact except as follows: Examination of both knees reveals the patient walks independently. Examination of the right knee reveals valgus alignment, which is increased with weightbearing. She has got a moderate-sized joint effusion. Range of motion is a couple degrees short of full extension to 120 degrees of flexion. There is no instability. No pain with hip motion. Examination of the left knee reveals a varus deformity. She does have a varus thrust with weightbearing. Tender over the medial joint line. Small knee effusion. Range of motion 5-125. No pain with hip motion. X-RAYS: X-rays of both knees were reviewed. It shows advanced bilateral knee DJD. The right knee has a valgus deformity with complete loss of lateral joint space with osteophytes laterally and the medial side gapping. Some mild to moderate patellofemoral disease. X-rays of the left knee reveal advanced medial compartment DJD. She has got complete loss of her medial joint space. She has got wear of her medial tibial plateau. Osteophytes primarily medially. ASSESSMENT: A 75-year-old white female with a history of dissecting aortic aneurysm in the past, underlying heart disease, hypertension, elevated cholesterol, asthma, with advanced bilateral knee degenerative joint disease. She has failed conservative treatment. The right knee is bothering her more than the left and she would like to proceed with surgery on her right knee at this time. PLAN: We are going to take her to the operating room and do right total knee replacement. The risks and benefits of this procedure were explained to the patient including but not limited to DVT, PE, , infection, neurological injury, vascular injury, bleeding problem, pain, limited range of motion, stiffness, failure to relieve her symptoms, incomplete relief of symptoms, need for further surgery in the future, fracture, leg length inequality, nerve palsy, etc. The patient understands and desires to proceed. Informed consent was obtained. As far as medicines, she is going to stop her Mobic 10 days preop. She is planning to be discharged to home using [facility] health program.
[~2020-11-09 06:50] MED LIST changes: +ACETAMINOPHEN 500 MG TAB PO SCH; -ALBU1AER9 INH; -ALLEGRA D PO; -ASMIN/60 INH; -BIMA0.03 OPB; +BUPIVACAINE 0.25% 30 ML VIAL ONE; +BUPIVACAINE 0.5 % 5 MG/1 ML PF 10ML VIAL ONE; +BUPIVACAINE LIPOSOME/PF 266 MG, BUPIVACAINE/EPINEPHRINE 50 ML, SODIUM CHLORIDE 0.9% 30 ... INFIL SCH; -CALCIUM 200 MG PO; -CHOL100027 PO; -COEN100C15 PO; -CONJ0.3T3 PO; +DEXAMETHASONE SOD INJ 4 MG/ML VIAL ONE; +EPINEPHrine INJ 1 MG/ML AMP ONE; +FAMOTIDINE 20 MG TAB PO SCH; -FISHOIL PO; +GABAPENTIN 300 MG CAP PO SCH; -GLUC500C60 PO; -LACT12CR18 TOP; +LR 500ML BOLUS, THEN 15ML/HR IV SCH; +LR 60ML/HR IV SCH; -NIAC500T8 PO; -TEMA15CA4 PO; +TRANEXAMIC ACID 1,000 MG **IV Intra-op IV SCH; -TRETINOIN 0.025% TOP; -ZOLP10TA PO; -biotin PO; +ceFAZolin 2000MG 2,000 MG/15 ML SYR IV SCH; -strontium PO
[2020-11-09] MEDS ORDERED: MIDAZOLAM HCL 1 MG/ML 2ML VIAL ONE (07:50)
[2020-11-09] MEDS ORDERED: fentaNYL citrate 100 MCG/2 ML VIAL ONE (07:50)
[2020-11-09] MEDS ORDERED: ePHEDrine sulfate 50 MG/ML AMP IV PRN (08:13)
[2020-11-09] MEDS ORDERED: ATROPINE SULFATE 0.1 MG/ML 10ML SYR IV PRN (08:13)
[2020-11-09] MEDS ORDERED: ONDANSETRON INJ 2 MG/ML 2 ML VIAL IV PRN ×2 (08:13→11:40)
[2020-11-09] MEDS ORDERED: fentaNYL citrate 100 MCG/2 ML VIAL IV PRN (08:13)
[2020-11-09] MEDS ORDERED: SODIUM CHLORIDE 0.9% PF 50 ML VIAL ONE (08:23)
[2020-11-09] MEDS ORDERED: BUPIVACAINE 0.25% 30 ML VIAL ONE (08:23)
[2020-11-09] MEDS ORDERED: BACITRACIN INJ 50,000 UNIT VIAL ONE (08:23)
[2020-11-09] MEDS ORDERED: BUPIVACAINE LIPOSOME 1.3% 266 MG/20 ML VIAL ONE (08:23)
[2020-11-09] MEDS ORDERED: EPINEPHrine INJ 1 MG/ML AMP ONE (08:24)
--- NOTE | 2020-11-09 08:24 | History & Physical Bridge Note ---
Date of Service November 09, 2020 History & Physical Bridge Note I have examined the patient, reviewed the History & Physical and in the interval since the performance of the History & Physical I have noted the following changes of clinical significance: no changes noted
[2020-11-09] MEDS ORDERED: PROPOFOL IV EMULSION 10 MG/ML 20 ML VIAL IV ONE (08:50)
[2020-11-09] MEDS ORDERED: LIDOCAINE HCL 2% 2 ML VIAL/AMP(20MG/ML) INFIL ONE (08:50)
[2020-11-09] MEDS ORDERED: ONDANSETRON INJ 2 MG/ML 2 ML VIAL ONE (08:50)
--- NOTE | 2020-11-09 10:31 | Operative Report ---
Post Operative Report Pre & Post Diagnosis Operation Date: 11/09/20 08:50 Pre-Op Diagnosis: Right Knee Advanced Degenerative Joint Disease Post-Op Diagnosis: Right Knee Advanced Degenerative Joint Disease I identified the patient and participated in the time-out.: Yes Procedure Operation Date: 11/09/20 08:50 Actual Procedures p Right Total Knee Arthroplasty(Right) - Familia Jules MD Surgeon Familia Jules MD [employer]el Plant Operator FLAVIA Forde Estimated Blood Loss 50 Findings Consistent with Post-Op Diagnosis Operative findings were advanced right knee DJD. She had extensive grade 4 [id number] disease and eburnation of the lateral femoral condyle and lateral tibial plateau. She had some spotty grade 4 changes elsewhere. She had a large knee joint effusion. She had a fixed valgus deformity to her knee. Fluids 1900 cc. Specimens Right knee sent for pathology. Drains None. Anesthesia Type Spinal MAC Complications none Disposition Accompanied Patient To Recovery: No Disposition: Recovery Room Indications Patient is a 75-year-old fairly very active female who has had a long history of bilateral knee pain and discomfort treated conservatively at a local orthopedic office. She is failed conservative care. Of the right knee was by the more than left. X-ray showed advanced bilateral knee DJD. She elected proceed with right total knee arthroplasty. Description of Procedure Operative implants consisted of: 1. Biomet Vanguard size 62.5 right posterior stabilized femoral component. 2. Biomet size 71 tibial tray. 3. 10 mm posterior stabilized polyethylene insert. 4. 31 x 8 all polypatella. The patient was taken to the operating, identified, placed on the operating table supine position. All contact areas were properly padded. IV antibiotics tried by anesthesia team. Right thigh tourniquet was then placed. The right lower extremity was then prepped and draped in usual sterile fashion. The right leg was elevated exsanguinated with use of an Esmarch and tourniquet placed at 300 mmHg. An anterior approach of the right knee was then performed through longitudinal incision centered over the patella. Sharp dissection got through subcutaneous tissue down the extensor mechanism. A medial parapatellar arthrotomy incision was made. Some subperiosteal dissection was carried out medially. The fat pad was resected from each patella tendon. Lateral patellofemoral ligament was released. Patella was subluxated laterally and the knee was flexed. The osteophytes were taken off distal femur. The ACL PCL were then released from distal femur and the tibia subluxated anteriorly. The external tibial alignment jig was then placed in the interface the tibia and adjusted 12 mm medially. Proximal tibial cut was made remove about 3 to 4 mm of bone from the medial side. The tibia was then sized to a size 71. We did downsize a slightly in order to get a better rotation of the tray. Attention drawn the femur. The distal femur stem with a sharp drill. The intramedullary canal was suction. A right 5 degree valgus cutting guide was placed. The distal femoral cutting block was pinned in place. The distal femoral cut was made to take an additional 3 mm bone off distal femur. The knee was brought out in extension. I did release some the IT band and posterior lateral capsule in order to equalize extension gap. At this was done taking great care to protect the peroneal nerve. The knee was then flexed. The femur was then sized to a size 62.5. The AP cutting block was pinned parallel to the epicondylar axis which was 4 degrees of external rotation. The anterior cut, anterior chamfer, posterior cut, posterior chamfer cuts were made. Box cutting guide was placed in just slight lateral box cut was made. The knee was flexed. The remnants of the medial lateral menisci were excised. The osteophytes were taken off the posterior aspect the femur. I did release the popliteus as well to equalize the flexion gap. The trial femoral component was placed. The tibial tray was pinned in maximum external rotation and the drill and stem punch were used to create defect in proximal tibia for the tibial tray. Knee was then trialed and the 10 mm insert fit most appropriately. Attention drawn the patella. The patella was cleaned of all soft tissue. Patella thickness measured 22 mm in thickness was cut down to 14. Was sized to a size 31 patella. The lug holes were drilled for the 31 patella. The lateral osteophyte was removed. Patella button was placed. Knee was taken through range of motion patella tracked nicely with no thumbs test. Attention drawn to placing permanent components. All trial components were removed. Bone plug was placed in the distal femur limit blood loss put a double batch Palacos G cement was mixed. A Biomet [employer]guard size 62.5 right posterior stabilized femoral component, size 71 tibial tray, a 10 mm posterior stabilized polyethylene insert, and a 31 x 8 all polypatella then cemented in place. The knee was brought out into full extension total cement hardened. Final cement check was then performed. The pericapsular tissues were injected with total 100 cc of combination of 20 of Exparel, 30 cc of normal saline, 50 cc of quarter percent Marcaine with epinephrine. Patient did receive 1 g tranexamic acid per the tourniquet was then let down for final tourniquet time 56 minutes. Hemostasis assured with electrocautery. The wounds once again irrigated with extensor Closed with combination 1 PDS suture #1 Vicryl suture in [id number] fashion with extensor Maxon checked found to be intact with subcutaneous tissue then closed 2 Dexon suture in a buried knot fashion skin was closed skin óscar. Leg was then cleaned and dried a sterile dressing both Xeroform, 4 x 4's, sterile cast padding, Husam bandage were applied. Patient then transferred to the recovery room in stable condition. Patient tolerated procedure well no complications. Sarthak Forde, my physician workers compensation claims assistant, was present for the entire procedure. His assistance was essential and required for appropriate patient positioning, prepping and draping, surgical exposure, performing the technical details of the operation, placement the implants, closure of the wound, and placement of the sterile bandage. I attest to the content of the Intraoperative Record and any orders documented therein. Any exceptions are noted below.
--- NOTE | 2020-11-09 10:47 | XRay Report ---
TWO VIEWS RIGHT KNEE CLINICAL HISTORY: Postoperative examination. FINDINGS: AP and crosstable lateral portable views of the right knee are obtained. A right knee arthr oplasty is in near anatomic alignment. There has been undersurface remodeling of the patella. No acut e fracture is seen. There are expected postoperative changes around the knee including skin clips, so ft tissue edema, and subcutaneous gas. There is atherosclerotic calcification of the popliteal artery . IMPRESSION: Expected postoperative changes status post right knee arthroplasty. No acute fracture is seen. ACT 112: Negative or not required by law. Electronically signed by: Manohar Preciado M.D. 11/09/2020 10:46 AM
--- NOTE | 2020-11-09 11:28 | Anesthesiology Progress Note ---
Date of Service November 09, 2020 Anesthesia Post Procedure Vital Signs Vital Signs: Temp Pulse Resp BP BP Pulse Ox 11/09/20 11:20 36.2 C L 68 16 148/72 H 98 11/09/20 11:10 36.2 C L 68 16 154/76 H 96 11/09/20 11:00 70 16 147/75 H 99 11/09/20 10:50 73 16 165/87 H 96 11/09/20 10:40 78 16 136/67 96 11/09/20 10:30 36.2 C L 75 16 107/62 97 11/09/20 10:21 36.2 C L 16 107/62 94 11/09/20 07:21 36.9 C 71 16 145/90 H 94 Pain Intensity Right Knee: Pain Intensity: 7 Transfer of Care Handoff Completed per policy Notes Mental Status: alert / awake / arousable Patient Amnestic to Procedure: Yes Nausea / Vomiting: adequately controlled Pain: adequately controlled Airway Patency, RR, SpO2: stable & adequate BP & HR: stable & adequate Hydration State: stable & adequate Neuraxial Anesthesia: was administered and sensory block is resolving Anesthetic Complications: no major complications apparent and Pt Satisfied with anesthetic care
[2020-11-09] MEDS ORDERED: TEMAZEPAM 15 MG CAPSULE PO PRN (11:40)
[2020-11-09] MEDS ORDERED: HYDROmorphone INJ 0.5 MG/0.5 ML SYR IV PRN (11:40)
[2020-11-09] MEDS ORDERED: MAGNESIUM HYDROXIDE SUSP 30 ML UDC PO PRN (11:40)
[2020-11-09] MEDS ORDERED: METOCLOPRAMIDE HCL INJ 5 MG/ML 2 ML VIAL IV PRN (11:40)
[2020-11-09] MEDS ORDERED: traMADol HCL 50 MG TABLET PO PRN (11:40)
[2020-11-09] MEDS ORDERED: ALUMINUM/MAGNESIUM SUSP 30 ML UDC PO PRN (11:40)
[2020-11-09] MEDS ORDERED: CYCLOBENZAPRINE HCL 5 MG TAB PO PRN (11:40)
[2020-11-09] MEDS ORDERED: bisacodyL 10 MG SUPP PR PRN (11:40)
[2020-11-09] MEDS ORDERED: ZOLPIDEM TARTRATE 5 MG TAB PO PRN (11:40)
[2020-11-09] MEDS ORDERED: NALOXONE HCL 0.4 MG/1 ML VIAL/CARP IV PRN (11:40)
[2020-11-09] MEDS: KETOROLAC TROMETHAMINE 15 MG/ML VIAL IV SCH ×2 (13:41→19:11)
[2020-11-09] MEDS: PROSOURCE NO CARB 30 ML/PKT PO SCH ×2 (13:42→21:12)
[2020-11-09] MEDS: ACETAMINOPHEN 500 MG TAB PO SCH (15:50)
[2020-11-09] MEDS: ceFAZolin 1000MG 1,000 MG/7.5 ML SYR IV SCH (15:52)
[2020-11-09] MEDS ORDERED: TRANEXAMIC ACID / 0.7% NACL 1,000 MG/100 ML BAG IV SCH (17:00)
[2020-11-09] MEDS: SODIUM CHLORIDE 0.9% 1000ML 1,000 ML IV SCH (17:58)
[2020-11-09] MEDS: FERROUS GLUCONATE 324 MG TAB PO SCH (17:59)
[2020-11-09] MEDS: ASCORBIC ACID 500 MG TAB PO SCH (17:59)
[2020-11-09] MEDS: DOCUSATE SODIUM 100 MG CAP PO SCH (18:01)
[2020-11-09] MEDS ORDERED: STRONTIUM PO SCH (21:00)
[2020-11-09] MEDS ORDERED: CALCIUM OTC PO SCH (21:00)
[2020-11-09] MEDS ORDERED: SENNA 8.6 MG TAB PO SCH (21:00)
[2020-11-09] MEDS ORDERED: NON-FORMULARY MEDICATION (Vitamin K2 100 mcg Capsule) PO SCH (21:00)
[2020-11-09] MEDS ORDERED: CHOLECALCIFEROL 1,000 UNITS 25 MCG TAB PO SCH (21:00)
[2020-11-09] MEDS ORDERED: CHONDROITIN SULFATE A SODIUM 400 MG PO SCH (21:00)
[2020-11-09] MEDS ORDERED: ACETYLCARNITINE 500 MG PO SCH (21:00)
[2020-11-09] MEDS ORDERED: ALBUTEROL HFA 8 GM INHALER INH PRN (21:00)
[2020-11-09] MEDS ORDERED: METOPROLOL TARTRATE 100 MG TAB PO SCH (21:00)
[2020-11-09] MEDS ORDERED: PROLINE MS SCH (21:00)
[2020-11-09] MEDS ORDERED: ATORVASTATIN 40 MG TAB PO SCH (21:00)
[2020-11-09] MEDS: ASPIRIN 81 MG ECTAB PO SCH (21:14)
[2020-11-10] MEDS: ACETAMINOPHEN 500 MG TAB PO SCH ×3 (01:13→15:30)
[2020-11-10] MEDS: KETOROLAC TROMETHAMINE 15 MG/ML VIAL IV SCH ×3 (01:13→12:19)
[2020-11-10] MEDS: ceFAZolin 1000MG 1,000 MG/7.5 ML SYR IV SCH (01:13)
[2020-11-10] MEDS: SODIUM CHLORIDE 0.9% 1000ML 1,000 ML IV SCH (04:35)
[2020-11-10 06:03] LABS: Hematocrit (blood only) 32.4 % (37-47); Hemoglobin 10.8 g/dL (12.0-16.0); Mean Corpuscular Hemoglobin 30.1 pg (25-34); Mean Corpuscular Hgb Conc 33.3 g/dL (32-36); Mean Corpuscular Volume 90.3 fL (80-100); Mean Platelet Volume 10.3 fL (7.4-10.4); Platelet Count 187 K/uL (130-400); RDW Standard Deviation 42.8 fL (36.4-46.3); Red Blood Count 3.59 M/uL (4.2-5.4); White Blood Count 14.64 K/uL (4.8-10.8)
[2020-11-10 06:39] LABS: BUN Creatinine Ratio 23.9 (10-20); Calcium 8.1 mg/dl (8.5-10.1); Creatinine Clr Calc Pharmacy 44.6 ml/min; Est GFR (African American) 56.3; Est GFR (Non-African American) 48.5; Potassium 4.8 mmol/L (3.5-5.1)
[2020-11-10] MEDS ORDERED: dexAMETHasone 4 MG TAB PO SCH (08:00)
[2020-11-10] MEDS ORDERED: FLUTICASONE FUROATE 100MCG 14 PUFFS/INHALER INH SCH (09:00)
[2020-11-10] MEDS ORDERED: NON-FORMULARY MEDICATION (Magnesium Citrate 100 mg Capsule) PO SCH (09:00)
[2020-11-10] MEDS ORDERED: MULTIVITAMIN TAB PO SCH ×2 (09:00)
[2020-11-10] MEDS ORDERED: [UNRECOGNIZED DRUG - OTHER] PO SCH (09:00)
[2020-11-10] MEDS ORDERED: HYDROCORTISONE VAL 0.2% CRM 15GM TUBE EXT SCH (09:00)
[2020-11-10] MEDS: ASPIRIN 81 MG ECTAB PO SCH (09:32)
[2020-11-10] MEDS: DOCUSATE SODIUM 100 MG CAP PO SCH (09:32)
[2020-11-10] MEDS: ASCORBIC ACID 500 MG TAB PO SCH (09:32)
[2020-11-10] MEDS: FERROUS GLUCONATE 324 MG TAB PO SCH (09:32)
[2020-11-10] MEDS: PROSOURCE NO CARB 30 ML/PKT PO SCH ×2 (09:33→15:04)
--- NOTE | 2020-11-10 15:46 | Progress Notes ---
DATE: 11/10/2020 SUBJECTIVE: A 75-year-old white female postop day 1 from right knee replacement. She is doing pretty well. She has been going to therapy and it is going well. Pain is reasonably well controlled. No chest pain or shortness of breath. Not feeling dizzy or lightheaded. OBJECTIVE: VITAL SIGNS: Temperature 36.7. Vital signs stable. GENERAL: Shows a pleasant elderly female. She is sitting up in her bedside chair with her leg propped up and looks comfortable. EXTREMITIES: Examination of the right leg reveals it to be well aligned. Dressing is clean, dry and intact. She can dorsiflex and plantarflex her foot appropriately. She is neurologically intact. She can do a good straight leg raise. LABORATORY DATA: Hemoglobin 10.8. Hematocrit 32.4. Electrolytes are stable. ASSESSMENT: A 75-year-old female, postoperative day 1 from right knee replacement, doing pretty well. Pain is controlled. She is neurologically intact. Slightly anemic, but asymptomatic. PLAN: 1. DVT prophylaxis including thigh-high TEDs, SCDs, and aspirin twice a day. 2. PT/OT. She can weightbear as tolerated in right lower extremity. 3. Pain control, doing okay with current pain regimen. 4. Disposition: Plan to discharge to home with some home health likely later today.
--- NOTE | 2020-11-12 06:35 | Discharge Summary ---
Date of Service November 12, 2020 Discharge Data Procedures Performed Operation Date: 11/09/20 08:50 Actual Procedures p Right Total Knee Arthroplasty(Right) - Familia Jules MD Hospital Course (1) Status post total right knee replacement: This patient is a 75 year old female admitted on 11/09/20 and underwent total knee arthroplasty. She tolerated the procedure well and there were no complications. Transferred to the PACU post op and later to the orthopedic floor for further care. She was given ancef for antibiotic prophylaxis. She was also given KATHRINE stockings, SCDs, and aspirin for DVT prophylaxis. Hemoglobin, hematocrit, and vital signs were monitored during her hospital stay and remained stable. Did not require any blood transfusions. There were no complications d uring her hospital stay. By post op day #1 the patient was tolerating a regular diet, pain was reasonably controlled with oral pain medicine, and she was participating in physical therapy. On post op day #1 the patient was discharged home and set up with home health care. She was given printed discharge instructions including prescriptions for extra strength tylenol, aspirin, and tramadol. Continue physical therapy, weight bearing as tolerated. Continue KATHRINE stockings. Follow up approximately 2 weeks post op or sooner if there are problems or concerns. Coding Level of Care Code None Diagnoses Status post total right knee replacement Z96.651
== END 2020-11-10 16:52 | disposition home health service (06) ==
LOC: PAT 06:50 → ASU 06:50 → 3E 06:50

== ENCOUNTER 2021-11-01 05:23 | Observation (INO) ==
--- NOTE | 2021-05-18 10:15 | Anesthesiology Consultation ---
Date of Service May 18, 2021 Assessment & Plan (1) Encounter for pre-operative examination: - COVID screening: Per assessment on 05/17: Travel screen negative, no known COVID-19 positive contacts or current COVID-19 related symptoms. Patient vaccin ated. Surgeon arranging preop COVID testing. Awaiting results. - Cardiology note (09/30/20): Seen prior to Right TKA (done 11/09/20 at [facility]) > "From a cardiac standpoint she is doing very well and I would like to repeat her echocardiogram in 1 year and see her in follow-up at that point. Otherwise, she is on a very good medical regimen and no changes will be made today. In terms of her preop risk assessment she and her were counseled that I would place her as a moderate risk for any adverse perioperative cardiovascular event with the risk being approximately less than 5%. She was further counseled that no further cardiac testing or intervention would further lower that risk. They both state that they understand, they are accepting that risk and wished to proceed with surgery. I see no need to delay from a cardiac standpoint. She was counseled to continue her metoprolol under operative throughout the perioperative. To further reduce her risk." Per cardiology note (11/08/20): "Normal stress test. No cardiac source for symptoms found. Pre-op risk as discussed." Chart Review Chart Review: Acceptable Risk for Surgery and Patient NOT seen in Pre Admission Testing History Surgery Operation Date: 06/10/21 10:40 Proposed Procedures p Left Total Knee Arthroplasty - Familia Jules MD Height/Weight Height: 5 ft 9 in Weight: 63.503 kg Allergies Allergy/AdvReac Type Severity Reaction Status Date / Time naproxen Allergy Unknown ITCHY Verified 05/17/21 13:09 rofecoxib Allergy Unknown ITCHY Verified 05/17/21 13:09 Sulfa (Sulfonamide Allergy Unknown REMOTE HX, Verified 05/17/21 13:09 Antibiotics) 50 YRS AGO , DON'T REMEMBER Medications Home Medications Medication Instructions Recorded Confirmed Last Taken ascorbate calcium (vitamin C) 500 1,000 mg PO DAILY 02/26/19 05/17/21 10/27/20 08:00 mg tablet atorvastatin 80 mg tablet 40 mg PO QDD tab 02/26/19 05/17/21 11/08/20 21:00 hydrocortisone valerate 0.2 % 1 applic TOPICAL UD PRN #3 gm 02/26/19 05/17/21 11/08/20 21:00 topical cream zolpidem 5 mg tablet 0.3 mg PO UD PRN tab 05/23/19 05/17/21 11/08/20 21:00 meloxicam 7.5 mg tablet 7.5 mg PO QPM 08/20/20 05/17/21 10/27/20 18:00 acetylcarnitine 500 mg capsule 500 mg PO QDL 09/24/20 05/17/21 10/27/20 08:00 albuterol sulfate 90 mcg/actuation 1 puff INHALATION BID 09/24/20 05/17/21 11/09/20 06:00 aerosol inhaler cholecalciferol (vitamin D3) 25 1,000 unit PO QPM 09/24/20 05/17/21 11/07/20 18:00 mcg (1,000 unit) capsule (Vitamin D3) magnesium citrate 100 mg capsule 200 mg PO QDL 09/24/20 05/17/21 11/07/20 08:00 multivitamin 1 tab PO QAM 09/24/20 05/17/21 11/07/20 08:00 proline (bulk) (L-Proline) 1 ea MISCELLANEOUS QDL 09/24/20 05/17/21 10/27/20 08:00 temazepam 15 mg capsule 15 mg PO HS PRN 09/24/20 05/17/21 11/05/20 22:00 vitamin K2 100 mcg capsule 100 mcg PO DAILY 09/24/20 05/17/21 Unknown amoxicillin 500 mg tablet 2,000 mg PO ONCE #4 tab 04/12/21 05/17/21 Unknown Strontium Citrate 340 mg PO DAILY 05/17/21 05/17/21 Unknown aspirin 81 mg tablet,delayed 81 mg PO DAILY 05/17/21 05/17/21 Unknown release calcium 600 mg capsule 800 mg PO DAILY 05/17/21 05/17/21 Unknown chondroitin sulfate A sodium 400 600 mg PO DAILY 05/17/21 05/17/21 Unknown mg capsule conj estrogen-medroxyprogesterone 1 tab PO QAM 05/17/21 05/17/21 Unknown 0.3 mg-1.5 mg tablet (Prempro) glucosamine sulfate 500 mg tablet 500 mg PO DAILY 05/17/21 05/17/21 Unknown (Glucosamine) krill 1,000 mg-omega-3 170 mg-dha 1 cap PO DAILY 05/17/21 05/17/21 Unknown 50 mg-epa 80 [id number] capsule (krill oil) metoprolol succinate 100 mg 100 mg PO HS 05/17/21 05/17/21 Unknown tablet,extended release 24 hr mometasone (Asmanex Twisthaler) 1 inh INHALATION BID 05/17/21 05/17/21 Unknown testosterone proprionate powder 1 dose TRANSDERMAL DAILY 05/17/21 05/17/21 Unknown tretinoin 0.025 % topical cream 1 applic TOPICAL 2XWK 05/17/21 05/17/21 Unknown Past Medical History Medical History Asthma controlled Bilateral primary osteoarthritis of knee Cancer BCC (face) Celiac artery stenosis CKD (chronic kidney disease) Stage III H/O allergic urticaria Hyperlipidemia Hypertension Left knee DJD Osteoarthritis Thoracic aortic aneurysm without rupture 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 Monitored by CHAYITO Manley. Past Family History Family History Father Diabetes Other Asthma Coronary heart disease Denies family history of Ovarian cancer Breast cancer Colorectal cancer Past Surgical History Surgical History History of appendectomy History of colonoscopy Multiple History of total right knee replacement 11/09/20 at [facility] S/P aortic aneurysm repair [facility] (2017) S/P tonsillectomy Social History Smoking Status: Former smoker tobacco type: cigarettes and cigars Do You Dip or Chew Tobacco: No Smoking End Date: 40 - 50 YRS AGO Hx Alcohol Use: Yes Alcohol type: beer and wine alcohol intake frequency: 0-2 drinks per day (1/day) Alcohol Intake Frequency Comment: GLASS OF WINE OR BEER DAILY Hx Substance Use: No substance use type: does not use Testing Laboratory Results 05/06/21 WBC 7.48 H/H 13.4/40.7 PLATELETS 232 SODIUM 142 POTASSIUM 5.0 CHLORIDE 104 CO2 27 BUN 30 CREATININE 1.1 GLUCOSE 93 05/11/21 PT 10.3 INR 1.0 Electrocardiogram Date: 09/30/20 NSR @ (82bpm) Chest X-Ray Date: 10/12/20 Findings: + NAD Echocardiogram Date: 04/28/19 EF: 63% Compared to last available study changes are noted as follows: Previously documented aortic root aneurysm is not visualized. Normal LV chamber size with mild concentric LVH. Normal LV systolic function without regional wall motion abnormality. Grade 1 diastolic dysfunction. Mild aortic valve sclerosis without stenosis. The aortic root and proximal ascending aorta are normal size. Patient is status post repair of the ascending aorta with a 28 mm Gelweave graft. Stress Test Date: 10/26/20 Type: nuclear Lexiscan nuclear cardiac stress test negative for ischemia. Gated SPECT images reveals normal myocardial thickening and wall motion. LVEF 72%. 105% MPHR. Cardiac Catheterization Date: 05/30/17 The coronary arteries have diffuse minor irregularities.
--- NOTE | 2021-10-26 13:13 | Anesthesiology Consultation ---
Date of Service October 26, 2021 Assessment & Plan (1) Encounter for pre-operative examination: Chart Review Chart Review: Acceptable Risk for Surgery (pending preop Covid testing results ) and Patient NOT seen in Pre Admission Testing Per nursing assessment 10/26/2021, patient denies any recent travel. No known Covid infection in the past 90 days. Patient is fully vaccinated for Covid. No known Covid positive exposures or Covid related symptoms. Preop Covid testing scheduled 10/28/21= will await results Patient last seen by cardiology 09/25/2021 = patient seen for follow-uphistory of spontaneous aortic dissection status post repair and nonobstructive CAD. Cardio aware of possibility of upcoming knee replacement in near future. From a cardiac standpoint she is doing very well no further cardiac testing intervention is necessary at this time. Patient on good medication regiment. Encouraged activity and will see on annual basis. "In terms of her preop risk assessment she was counseled that I would place her at a moderate risk for any adverse perioperative cardiovascular event with the risk being approximately less than 5%. She was further counseled that no further cardiac testing or intervention would further lower that risk. She states she understands, she is accepting of that risk and wishes to proceed. So I see no need to delay from a cardiac standpoint." History Surgery Operation Date: 09/09/21 07:00 Proposed Procedures p Left Total Knee Arthroplasty - Familia Jules MD Operation Date: 09/09/21 08:50 Proposed Procedures p Left Total Knee Arthroplasty - Familia Jules MD Operation Date: 11/01/21 07:00 Proposed Procedures p Left Total Knee Arthroplasty - Familia Jules MD Height/Weight Height: 5 ft 9 in Weight: 65.317 kg Allergies Allergy/AdvReac Type Severity Reaction Status Date / Time naproxen Allergy Unknown ITCHY Verified 10/26/21 12:22 rofecoxib Allergy Unknown ITCHY Verified 10/26/21 12:22 Sulfa (Sulfonamide Allergy Unknown REMOTE HX, Verified 10/26/21 12:22 Antibiotics) 50 YRS AGO , DON'T REMEMBER Medications Home Medications Medication Instructions Recorded Confirmed Last Taken ascorbate calcium (vitamin C) 500 1,000 mg PO HS 02/26/19 10/26/21 10/27/20 08:00 mg tablet atorvastatin 80 mg tablet 40 mg PO QDD tab 02/26/19 10/26/21 11/08/20 21:00 hydrocortisone valerate 0.2 % 1 applic TOPICAL UD PRN #3 gm 02/26/19 10/26/21 11/08/20 21:00 topical cream zolpidem 5 mg tablet 0.3 mg PO UD PRN tab 05/23/19 10/26/21 11/08/20 21:00 meloxicam 7.5 mg tablet 7.5 mg PO QPM 08/20/20 10/26/21 10/27/20 18:00 acetylcarnitine 500 mg capsule 500 mg PO QDL 09/24/20 10/26/21 10/27/20 08:00 albuterol sulfate 90 mcg/actuation 1 puff INHALATION BID 09/24/20 10/26/21 11/09/20 06:00 aerosol inhaler cholecalciferol (vitamin D3) 25 1,000 unit PO QPM 09/24/20 10/26/21 11/07/20 18:00 mcg (1,000 unit) capsule (Vitamin D3) magnesium citrate 100 mg capsule 200 mg PO QDL 09/24/20 10/26/21 11/07/20 08:00 multivitamin 1 tab PO QAM 09/24/20 10/26/21 11/07/20 08:00 proline (bulk) (L-Proline) 1 ea MISCELLANEOUS QDL 09/24/20 10/26/21 10/27/20 08:00 temazepam 15 mg capsule 15 mg PO HS PRN 09/24/20 10/26/21 11/05/20 22:00 vitamin K2 100 mcg capsule 100 mcg PO HS 09/24/20 10/26/21 Unknown amoxicillin 500 mg tablet 2,000 mg PO ONCE #4 tab 04/12/21 10/26/21 Unknown Strontium Citrate 340 mg PO HS 05/17/21 10/26/21 Unknown aspirin 81 mg tablet,delayed 81 mg PO HS 05/17/21 10/26/21 Unknown release calcium 600 mg capsule 800 mg PO HS 05/17/21 10/26/21 Unknown chondroitin sulfate A sodium 400 600 mg PO HS 05/17/21 10/26/21 Unknown mg capsule glucosamine sulfate 500 mg tablet 500 mg PO HS 05/17/21 10/26/21 Unknown (Glucosamine) krill 1,000 mg-omega-3 170 mg-dha 1 cap PO HS 05/17/21 10/26/21 Unknown 50 mg-epa 80 [id number]-hsqet capsule (krill oil) metoprolol succinate 100 mg 100 mg PO HS 05/17/21 10/26/21 Unknown tablet,extended release 24 hr testosterone proprionate powder 1 dose TRANSDERMAL DAILY 05/17/21 10/26/21 Unknown tretinoin 0.025 % topical cream 1 applic TOPICAL 2XWK 05/17/21 10/26/21 Unknown mometasone (Asmanex Twisthaler) 1 inh INHALATION BID #3 ea 09/09/21 10/26/21 Unknown lifitegrast 5 % eye drops in a 1 drp OPHTHALMIC (EYE) BID 10/05/21 10/26/21 Unknown dropperette (Xiidra) conj estrogen-medroxyprogesterone 1 tab PO QAM 10/26/21 10/26/21 Unknown 0.3 mg-1.5 mg tablet (Prempro) Past Medical History Medical History (Updated 10/26/21 @ 13:23 by Ekaterina Razo PA-C) Asthma Controlled CAD (coronary artery disease) Non obstructive per cardio Cancer BCC (face) Celiac artery stenosis CKD (chronic kidney disease) Stage III H/O allergic urticaria Hyperlipidemia Hypertension Osteoarthritis Thoracic aortic aneurysm without rupture 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 Monitored by Dr Zurita, [facility]. Past Family History Family History Father Diabetes Other Asthma Coronary heart disease Denies family history of Ovarian cancer Breast cancer Colorectal cancer Past Surgical History Surgical History History of appendectomy History of colonoscopy Multiple History of total right knee replacement 11/09/20 at [facility] S/P aortic aneurysm repair [facility] [place] (2017) S/P tonsillectomy Social History Smoking Status: Never smoker tobacco type: cigarettes and cigars Do You Dip or Chew Tobacco: No Smoking End Date: 40 - 50 YRS AGO Hx Alcohol Use: Yes Alcohol type: beer and wine alcohol intake frequency: 0-2 drinks per day Alcohol Intake Frequency Comment: GLASS OF WINE OR BEER DAILY Hx Substance Use: No substance use type: does not use Lab Results Anesthesia Preop Results Results Anesthesia Widget: WBC 7.61 K/uL (4.8-10.8) 10/20/21 Hgb 14.4 g/dL (12.0-16.0) 10/20/21 Hct 42.1 % (37-47) 10/20/21 Plt 242 K/uL (130-400) 10/20/21 Na 138 mmol/L (136-145) 10/20/21 K 4.3 mmol/L (3.5-5.1) 10/20/21 Cl 102 mmol/L (98-107) 10/20/21 CO2 29 mmol/L (21-32) 10/20/21 BUN 30 mg/dl (6-23) H 10/20/21 Creat 1.09 mg/dl (0.6-1.2) 10/20/21 Glucose Level 97 mg/dl (70-99(Fasting)) 10/20/21 PT 10.5 Seconds (9.0-12.0) 10/20/21 INR 1.0 (0.9-1.1) 10/20/21 Blood Type O Positive 10/20/21 Antibody Screen NEGATIVE 10/20/21 Testing Electrocardiogram Date: 10/20/21 Findings: + NSR @ (73bpm ) Possible LAE. Nonspecific ST abnormality. When compared to EKG from May 28, 2017- PVCs are no longer present, ST now depressed in anterolateral leads per cardio. (EKG from 10/03/21 included with similar anterolateral ST depression by personal visual inspection- 10/03/21 EKG also noted to have inferior ST depression- 10/03/21 EKG done at cardio clearance appt- pt optimized from cardiac standpoint- ECHO done 09/26/21 showed no issues. Discussed 10/20/[address] Paz- ST depression noted in V6- feel patient can proceed as scheduled) Chest X-Ray Date: 10/25/21 Findings: + NAD Echocardiogram Date: 09/26/21 EF: 60-64% LV Function: normal RWMA: + none Other Findings: + LVH (mild/concentric) and + diastolic dysfunction (Grade I ) LA mildly enlarged Mild AR. Aortic root and proximal ascending aorta are normal in size. Patient is s/p repair of ascending aorta with a 28mm gelweave graft. Mild TR. No evidence of pulm HTN Stress Test Date:10/26/20 Type:nuclear Lexiscan nuclear cardiac stress test negative for ischemia. Gated SPECT images reveals normal myocardial thickening and wall motion. LVEF 72%. 105% MPHR Cardiac Catheterization Date:05/30/17 The coronary arteries have diffuse minor irregularities.
[~2021-11-01 05:23] MED LIST changes: -BUPIVACAINE 0.25% 30 ML VIAL ONE; -BUPIVACAINE 0.5 % 5 MG/1 ML PF 10ML VIAL ONE; -DEXAMETHASONE SOD INJ 4 MG/ML VIAL ONE; -EPINEPHrine INJ 1 MG/ML AMP ONE; +METOCLOPRAMIDE HCL 10 MG TABLET PO SCH
[2021-11-01] MEDS ORDERED: BUPIVACAINE LIPOSOME/PF 266 MG, BUPIVACAINE/EPINEPHRINE 50 ML, SODIUM CHLORIDE 0.9% 30 ... INFIL SCH (06:00)
[2021-11-01] MEDS ORDERED: ceFAZolin 2000MG 2,000 MG/15 ML SYR IV SCH (06:00)
[2021-11-01] MEDS ORDERED: GABAPENTIN 300 MG CAP PO SCH (06:00)
[2021-11-01] MEDS ORDERED: ACETAMINOPHEN 500 MG TAB PO SCH ×2 (06:00→14:00)
[2021-11-01] MEDS ORDERED: LR 60ML/HR IV SCH (06:00)
[2021-11-01] MEDS ORDERED: TRANEXAMIC ACID 1,000 MG **IV Intra-op IV SCH (06:00)
[2021-11-01] MEDS ORDERED: METOCLOPRAMIDE HCL 10 MG TABLET PO SCH (06:00)
[2021-11-01] MEDS ORDERED: LR 500ML BOLUS, THEN 15ML/HR IV SCH (06:00)
[2021-11-01] MEDS ORDERED: FAMOTIDINE 20 MG TAB PO SCH (06:00)
[2021-11-01] MEDS ORDERED: BUPIVACAINE 0.5 % 5 MG/1 ML PF 10ML VIAL ONE (06:23)
[2021-11-01] MEDS ORDERED: MIDAZOLAM HCL 1 MG/ML 2ML VIAL ONE (06:32)
[2021-11-01] MEDS ORDERED: fentaNYL citrate 100 MCG/2 ML VIAL ONE (06:32)
[2021-11-01] MEDS ORDERED: BUPIVACAINE/EPINEPHRINE 0.25% 1:200,000 30 ML VIAL ONE (06:38)
[2021-11-01] MEDS ORDERED: SODIUM CHLORIDE 0.9% PF 50 ML VIAL ONE (06:38)
[2021-11-01] MEDS ORDERED: BUPIVACAINE LIPOSOME 1.3% 266 MG/20 ML VIAL ONE (06:38)
[2021-11-01] MEDS ORDERED: ONDANSETRON INJ 2 MG/ML 2 ML VIAL IV PRN ×2 (06:42→10:22)
[2021-11-01] MEDS ORDERED: ePHEDrine sulfate 50 MG/ML AMP IV PRN (06:42)
[2021-11-01] MEDS ORDERED: fentaNYL citrate 100 MCG/2 ML VIAL IV PRN (06:42)
[2021-11-01] MEDS ORDERED: ATROPINE SULFATE 0.1 MG/ML 10ML SYR IV PRN (06:42)
--- NOTE | 2021-11-01 06:51 | History & Physical Bridge Note ---
Date of Service November 01, 2021 History & Physical Bridge Note I have examined the patient, reviewed the History & Physical and in the interval since the performance of the History & Physical I have noted the following changes of clinical significance: no changes noted
[2021-11-01] MEDS ORDERED: LIDOCAINE 2% 2 ML VIAL/AMP(20MG/ML) INFIL ONE (07:52)
[2021-11-01] MEDS ORDERED: PROPOFOL IV EMULSION 10 MG/ML 20 ML VIAL IV ONE ×2 (07:52→08:14)
--- NOTE | 2021-11-01 08:50 | Operative Report ---
PG Post Operative Report Pre & Post Diagnosis Operation Date: 09/09/21 07:00 <No data on this case meets the specified criteria> Operation Date: 09/09/21 08:50 <No data on this case meets the specified criteria> Operation Date: 11/01/21 07:00 Pre-Op Diagnosis: Left Knee Osteoarthritis, Left Knee Pain Post-Op Diagnosis: Left Knee Osteoarthritis, Left Knee Pain I identified the patient and participated in the time-out.: Yes Procedure Operation Date: 09/09/21 07:00 <No data on this case meets the specified criteria> Operation Date: 09/09/21 08:50 <No data on this case meets the specified criteria> Operation Date: 11/01/21 07:00 Actual Procedures p Left Total Knee Replacement(Left) - Familia Jules MD Surgeon Familia Jules MD Twitchell Operator Sarthak Forde PA-C Estimated Blood Loss 50 Findings Consistent with Post-Op Diagnosis Operative findings real advanced left knee DJD. She had extensive grade 4 b one-on-bone disease and eburnation of the medial compartment. She had a fixed varus deformity to her knee with a fairly large Galicia's cyst posteriorly. She had grade 4 disease of the patellofemoral joint as well. Fairly mild changes laterally. Fluids 1300 cc Specimens Left knee sent for pathology Drains None Anesthesia Type Spinal MAC Complications none Disposition Accompanied Patient To Recovery: No Indications Patient is 76-year-old female with a long history of knee problems over the years patient been through extensive conservative treatment which became less successful over time. She underwent a right knee replaced in the past and is done well from this. She continued be limited by left knee pain. She elected to attend a left total knee arthroplasty. Description of Procedure Operative implants consist of: 1. A Biomet Vanguard size 62.5 left posterior stabilized femoral component. 2. Biomet size 71 tibial tray. 3. 14 mm posterior stabilized polyethylene insert. 4. 31 x 8 all polypatella. The patient was taken to the operating, identified, placed on the operating table supine position protectors were properly padded. IV antibiotics tried by anesthesia team. A spinal anesthetic and abductor canal block had provided holding area. Pate catheter was placed in sterile fashion. Left thigh tourniquet was then placed in the left lower extremities and prepped and draped in usual sterile fashion. The left leg was elevated exsanguinated with use of an Esmarch in terms playset 3 mmHg. An anterior approach left knee was then performed through longitudinal incision centered over the patella. Sharp dissection was carried through subcutaneous this down the extensor mechanism. Medial parapatellar arthrotomy incision was made. Some subperiosteal dissection was carried out medially. The fat pad was resected from each patella tendon. Lateral patellofemoral ligament was released. Patella subluxated laterally and the knee was flexed. The osteophyte taken off distal femur. The ACL and PCL were then released in the distal femur the tibia subluxated anteriorly. The external tibial alignment jig was then placed in the interface the tibia and adjusted 14 mm medially. Proximal tibial cut was made to remove about a millimeter bone from the most deficient aspect medial tibial plateau. Some large osteophytes were taken off medial and posterior medially. Tibia was sized to a size 71. Attention drawn the femur. The distal femur was entered with a sharp drill. Intramedullary canal was suction. A left 5 degree valgus cutting guide was placed. Distal femoral cutting block was pinned in place but distal femoral cut was made to take an additional 3 mm of bone off distal femur. The femur was then sized to a size 62.5. The AP cutting block was pinned parallel to the epicondylar axis which was 5 degrees of external rotation. The anterior cut, anterior chamfer, posterior cut, posterior chamfer cuts were made. The box cutting guide was placed in just slight lateral box cut was made. The knee was flexed. The remnants of the medial and lateral menisci were excised. The osteophytes taken off the posterior aspect of the femur. A trial femoral component was placed. The tibial tray was pinned in maximum external rotation and the drill and stem punch used to create defect in proximal tibia for the tibial tray. Knee was then trialed and the 14 mm insert fit most appropriately. Attention drawn the patella. The patella was cleaned of all soft tissues. Patella thickness measured 21 mm in thickness was cut down to 13. Was sized to a size 31 patella. The lug holes were drilled for 31 patella. The lateral osteophyte is moved. Patella button was placed. Knee was taken through range of motion patella tracked nicely with no thumbs test. Attention drawn to placing permanent components. All trial components were removed. A bone plug was placed in the distal femur limit blood loss put a double batch Palacos G cement was mixed. A Biomet Vanguard size 62.5 left posterior stabilized femoral component, size 71 tibial tray, 814 mm posterior stabilized polyethylene insert, and a 31 x 8 all polypatella were then cemented in place. Knee was brought out in full extension until cement hardened. Final cement check was then performed. Pericapsular tissues were injected with a total of 100 cc of combination of 20 cc of Exparel, 30 cc normal saline, 50 cc of quarter percent Marcaine with epinephrine. Patient did receive 1 g tranexamic acid. The tourniquet was then let down for final turn time 55 minutes. Hemostasis assured with electrocautery. Extensor mechanism closed with combination 1 PDS suture #1 Vicryl suture in [id number] fashion. Extensor mechanism checked found to be intact the subcutaneous tissue then closed with 2 Dexon suture in a buried interrupted fashion skin was closed skin óscar. Leg was then cleaned and dried a sterile dressing was Xeroform, 4 x 4's, sterile cast padding, Husam bandage applied. Patient then transferred to the recovery room in stable condition. Patient tolerated procedure well and there were no complications. Sarthak Forde, my physician client account assistant, was present for the entire procedure. His assistance was essential and required for appropriate patient positioning, prepping and draping, surgical exposure, performing the technical details of the operation, placement the implants, closure of the wound, and placement of the st erile bandage. I attest to the content of the Intraoperative Record and any orders documented therein. Any exceptions are noted below.
--- NOTE | 2021-11-01 09:27 | XRay Report ---
XR knee LT 1 or 2V routine CLINICAL HISTORY: Surgical Post Op TECHNIQUE: 2 views of the left knee were obtained. Comparison: Comparison is made to knee radiographs 10/24/2021 FINDINGS: Patient is status post total knee arthroplasty with expected postsurgical changes including soft tiss ue swelling, subcutaneous emphysema, and surgical staple placement. No periarticular lucency or hardw are fracture is seen. No joint effusion is seen. No soft tissue abnormality is seen. IMPRESSION: Expected postoperative appearance status post placement of total knee arthroplasty. ACT 112: Negative or not required by law. Electronically signed by: Randal Nova M.D. 11/01/2021 9:26 AM
[2021-11-01] MEDS ORDERED: MAGNESIUM HYDROXIDE SUSP 30 ML UDC PO PRN (10:22)
[2021-11-01] MEDS ORDERED: NALOXONE HCL 0.4 MG/1 ML VIAL/CARP IV PRN (10:22)
[2021-11-01] MEDS ORDERED: NON-FORMULARY MEDICATION (Multivitamin Tablet) PO SCH (10:22)
[2021-11-01] MEDS ORDERED: HYDROCORTISONE VAL 0.2% CRM 15GM TUBE EXT PRN (10:22)
[2021-11-01] MEDS ORDERED: METOCLOPRAMIDE HCL INJ 5 MG/ML 2 ML VIAL IV PRN (10:22)
[2021-11-01] MEDS ORDERED: TEMAZEPAM 15 MG CAPSULE PO PRN (10:22)
[2021-11-01] MEDS ORDERED: bisacodyL 10 MG SUPP PR PRN (10:22)
[2021-11-01] MEDS ORDERED: HYDROmorphone HCL 2 MG TAB PO PRN (10:22)
[2021-11-01] MEDS ORDERED: ZOLPIDEM TARTRATE 5 MG TAB PO PRN (10:22)
[2021-11-01] MEDS ORDERED: ALUMINUM/MAGNESIUM SUSP 30 ML UDC PO PRN (10:22)
[2021-11-01] MEDS ORDERED: HYDROmorphone INJ 0.5 MG/0.5 ML SYR IV PRN (10:22)
[2021-11-01] MEDS ORDERED: ONDANSETRON 4 MG OD TAB PO PRN (11:08)
[2021-11-01] MEDS: SODIUM CHLORIDE 0.9% 1000ML 1,000 ML IV SCH (11:18)
[2021-11-01] MEDS ORDERED: ACETYLCARNITINE 500 MG PO SCH (11:30)
[2021-11-01] MEDS ORDERED: PROLINE MS SCH (11:30)
[2021-11-01] MEDS: TAPENTADOL HCL ER 50 MG TABCR PO SCH ×2 (12:31→20:03)
[2021-11-01] MEDS: DOCUSATE SODIUM 100 MG CAP PO SCH ×2 (12:32→20:05)
[2021-11-01] MEDS: ASPIRIN 81 MG ECTAB PO SCH ×2 (12:32→20:03)
[2021-11-01] MEDS: DOCUSATE SODIUM/SENNA 50/8.6MG TAB PO SCH (12:33)
[2021-11-01] MEDS: MULTIVITAMIN TAB PO SCH (12:34)
[2021-11-01] MEDS: MAGNESIUM OXIDE 400 MG TAB PO SCH (12:34)
[2021-11-01] MEDS: FLUTICASONE FUROATE 200MCG 14 PUFFS/INHALER INH SCH (12:35)
[2021-11-01] MEDS: KETOROLAC TROMETHAMINE 15 MG/ML VIAL IV SCH ×3 (12:36→22:59)
--- NOTE | 2021-11-01 13:14 | Anesthesiology Progress Note ---
Date of Service November 01, 2021 Anesthesia Post Procedure Vital Signs Vital Signs: Temp Pulse Pulse Resp BP BP Pulse Ox 11/01/21 13:12 167/82 H 11/01/21 12:30 97.9 F 60 16 183/88 H 96 11/01/21 12:18 193/95 H 11/01/21 11:45 193/94 H 11/01/21 11:30 97.9 F 64 16 183/94 H 98 11/01/21 10:47 97.3 F L 73 16 168/94 H 96 11/01/21 10:24 97.7 F 70 18 169/89 H 97 11/01/21 09:55 67 20 151/87 H 95 11/01/21 09:45 68 20 146/79 H 95 11/01/21 09:35 72 22 144/89 H 97 11/01/21 09:25 76 12 158/78 H 99 11/01/21 09:15 76 20 148/68 H 94 11/01/21 09:05 77 16 151/82 H 99 11/01/21 08:55 78 20 143/76 H 100 11/01/21 08:45 97.0 F L 83 16 133/71 98 11/01/21 05:45 98.4 F 76 18 152/99 H 96 Transfer of Care Handoff Completed per policy Notes Mental Status: alert / awake / arousable and participated in evaluation Patient Amnestic to Procedure: Yes Nausea / Vomiting: adequately controlled Pain: adequately controlled Airway Patency, RR, SpO2: stable & adequate BP & HR: stable & adequate Hydration State: stable & adequate Neuraxial Anesthesia: was administered and sensory block is resolving Anesthetic Complications: no major complications apparent and Pt Satisfied with anesthetic care
[2021-11-01] MEDS ORDERED: TRANEXAMIC ACID / 0.7% NACL 1,000 MG/100 ML BAG IV SCH (14:45)
[2021-11-01] MEDS: ACETAMINOPHEN 500 MG TAB PO SCH ×2 (14:48→22:59)
[2021-11-01] MEDS: ALBUTEROL HFA 8 GM INHALER INH SCH ×2 (15:08→19:58)
[2021-11-01] MEDS: ceFAZolin 1000MG 1,000 MG/7.5 ML SYR IV SCH ×2 (15:49→22:59)
[2021-11-01] MEDS: ASCORBIC ACID 500 MG TAB PO SCH (16:19)
[2021-11-01] MEDS ORDERED: ATORVASTATIN 40 MG TAB PO SCH (16:30)
[2021-11-01] MEDS ORDERED: [UNRECOGNIZED DRUG - OTHER] PO SCH (21:00)
[2021-11-01] MEDS ORDERED: GLUCOSAMINE SULFATE 500 MG CAP PO SCH (21:00)
[2021-11-01] MEDS ORDERED: XIIDRA EYE OP SCH (21:00)
[2021-11-01] MEDS ORDERED: SENNA 8.6 MG TAB PO SCH (21:00)
[2021-11-01] MEDS ORDERED: CHOLECALCIFEROL 1,000 UNITS 25 MCG TAB PO SCH (21:00)
[2021-11-01] MEDS ORDERED: CHONDROITIN SULFATE A SODIUM 400 MG PO SCH (21:00)
[2021-11-01] MEDS ORDERED: METOPROLOL SUCC 50MG EXT REL TAB PO SCH (21:00)
[2021-11-01] MEDS ORDERED: NON-FORMULARY MEDICATION (Krill-Om-3-Dha-Epa-Phospho-Ast [Krill Oil] 1,000-170-50-80 mg Ca PO SCH (21:00)
[2021-11-01] MEDS ORDERED: CALCIUM CARBONATE 1250MG TAB PO SCH (21:00)
[2021-11-01] MEDS ORDERED: NON-FORMULARY MEDICATION (Vitamin K2 100 mcg Capsule) PO SCH (21:00)
[2021-11-02] MEDS: SODIUM CHLORIDE 0.9% 1000ML 1,000 ML IV SCH (00:28)
[2021-11-02] MEDS: KETOROLAC TROMETHAMINE 15 MG/ML VIAL IV SCH ×2 (05:45→11:14)
[2021-11-02] MEDS: ACETAMINOPHEN 500 MG TAB PO SCH ×2 (05:46→13:23)
[2021-11-02 06:50] LABS: Hematocrit (blood only) 35.2 % (37-47); Mean Corpuscular Hgb Conc 34.1 g/dL (32-36); Mean Platelet Volume 10.2 fL (7.4-10.4); Platelet Count 206 K/uL (130-400); RDW Standard Deviation 43.5 fL (36.4-46.3); Red Blood Count 3.87 M/uL (4.2-5.4); White Blood Count 9.71 K/uL (4.8-10.8)
[2021-11-02] MEDS: ALBUTEROL HFA 8 GM INHALER INH SCH (07:06)
[2021-11-02 07:18] LABS: Calcium 8.9 mg/dl (8.5-10.1); Est GFR (African American) 63.4 ml/min; Est GFR (Non-African American) 54.7 ml/min
[2021-11-02] MEDS ORDERED: dexAMETHasone 10 MG in SYRINGE 0 ML IV SCH (08:00)
[2021-11-02] MEDS: FLUTICASONE FUROATE 200MCG 14 PUFFS/INHALER INH SCH (08:45)
[2021-11-02] MEDS: ASCORBIC ACID 500 MG TAB PO SCH (08:46)
[2021-11-02] MEDS: DOCUSATE SODIUM 100 MG CAP PO SCH (08:47)
[2021-11-02] MEDS: MULTIVITAMIN TAB PO SCH (08:47)
[2021-11-02] MEDS: DOCUSATE SODIUM/SENNA 50/8.6MG TAB PO SCH (08:47)
[2021-11-02] MEDS: ASPIRIN 81 MG ECTAB PO SCH (08:48)
[2021-11-02] MEDS: TAPENTADOL HCL ER 50 MG TABCR PO SCH (08:51)
[2021-11-02] MEDS: MAGNESIUM OXIDE 400 MG TAB PO SCH (11:14)
--- NOTE | 2021-11-02 14:41 | Progress Notes ---
DATE OF SERVICE: 11/02/2021. SUBJECTIVE: A 76-year-old white female postoperative day 1 from left knee replacement. She is doing quite well. The pain is controlled. Therapy went well. Anxious to get home. No chest pain or curtis rtness of breath. Not feeling dizzy or lightheaded. OBJECTIVE: VITAL SIGNS: Temperature is 36.7. Vital signs are stable. GENERAL: Shows a pleasant middle-aged female. She is sitting up in bed and looks quite comfortable and looks dressed and ready to go. LUNGS: Clear to auscultation. HEART: Has a regular rate and rhythm. ABDOMEN: Soft, nontender, nondistended. EXTREMITIES: Grossly neurovascularly intact except as follows. Examination of the left leg reveals the dressing to be clean, dry and intact. She can dorsiflex and plantarflex her foot appropriately. She is neurologically intact. LABORATORY DATA: Hemoglobin 12.0. Hematocrit 35.2. Electrolytes are stable. ASSESSMENT: A 76-year-old white female postoperative day 1 from left knee replacement, doing quite w ell. Pain is controlled. She is neurologically intact. PLAN: 1. DVT prophylaxis includes thigh-high TEDs, SCDs, and aspirin twice a day. 2. PT, OT, weightbear as tolerated. Left total knee protocol. 3. Pain control, doing well with current pain regimen. 4. Disposition: Plan to discharge to home with some home health later today. Job ID: [id number]
== END 2021-11-02 15:19 | disposition home health service (06) ==
LOC: 3E 05:23 → ASU 05:23